=== PATIENT | female | born 1930 | race Caucasian/White ===

== ENCOUNTER 2016-10-12 07:02 | Inpatient (IN) | payer MEDICARE, MEDICAID ==
[2016-10-12] MEDS ORDERED: NS 0.9% 1000 ML* 2,000 ML IV ONE (07:49)
[2016-10-12 08:50] LABS: Urine Bacteria Absent (Absent); Urine Bilirubin Negative (Negative); Urine Glucose Negative (Negative); Urine Nitrite Negative (Negative)
[2016-10-12 08:59] LABS: Hematocrit 36 % (35-47); Hemoglobin 11.9 g/dl (12.0-16.0); Mean Corpuscular HGB Conc 33 g/dl (31-36); Mean Corpuscular Hemoglobin 27 pg (27-31); Mean Corpuscular Volume 83 fL (80-97); Mean Platelet Volume 9 um3 (7.4-10.4); Red Blood Count 4.37 10^6/ul (4.0-5.4); Red Cell Distribution Width 15 % (10.5-15); White Blood Count 16.5 10^3/ul (3.5-10.8)
[2016-10-12 09:24] LABS: Albumin 3.7 g/dL (3.2-5.2); BUN/Creatinine Ratio 26.9 (8-20); Calcium 9.3 mg/dL (8.6-10.3); EGFR African American 73.5 (>60); EGFR Non-African American 57.2 (>60); Globulin 3.9 g/dL (2-4); Magnesium 1.8 mg/dL (1.9-2.7); Potassium 3.6 mmol/L (3.5-5.0); Total Bilirubin 0.7 mg/dL (0.2-1.0); Total Protein 7.6 g/dL (6.4-8.9)
[2016-10-12 09:25] LABS: Troponin I 0.03 ng/mL (<0.04)
--- NOTE | 2016-10-12 09:26 | RAD ---
HISTORY: Fall, left-sided chest pain COMPARISONS: Chest x-ray dated July 21, 2016 VIEWS: 6: Frontal dual-energy and lateral views of the chest, frontal and oblique views of the left hemithorax. FINDINGS: CARDIOMEDIASTINAL SILHOUETTE: The cardiomediastinal silhouette is normal. SHELLY: The shelly are normal. PLEURA: The costophrenic angles are sharp. No pleural abnormalities are noted. There is no appreciable pneumothorax. LUNG PARENCHYMA: There is hyperinflation with flattening of the diaphragm and expansion of the AP diameter of the chest. ABDOMEN: The upper abdomen is clear. There is no subphrenic gas. BONES AND SOFT TISSUES: Degenerative changes are noted of the spine and shoulders. There is no displaced rib fracture. OTHER: None. IMPRESSION: HYPERINFLATION, CONSISTENT WITH COPD. NO ACTIVE CARDIOPULMONARY DISEASE. NO DISPLACED RIB FRACTURE OR PNEUMOTHORAX.
--- NOTE | 2016-10-12 09:34 | RAD ---
INDICATION: Head trauma after fall COMPARISON: CT brain July 21, 2016 TECHNIQUE: Contiguous axial sections of the brain were obtained from the skull base to the vertex without contrast. FINDINGS: The ventricles, cisterns and sulci are within normal limits. There is mild periventricular and subcortical white matter hypoattenuation most consistent with chronic microvascular disease and similar in appearance to the previous CT of the brain. Otherwise the jolly-white matter differentiation is adequately maintained and there is no sulcal effacement. No significant focal abnormality or mass effect is present. There is no evidence for intracranial hemorrhage. Coarse atherosclerotic calcification of the right greater than left vertebral arteries and bilateral petrous carotid arteries are noted. No significant focal osseous abnormality is present. The visualized portion of the paranasal sinuses and mastoid air cells appear clear. IMPRESSION: Age-appropriate chronic findings as described above without CT evidence of acute intracranial abnormality.
--- NOTE | 2016-10-12 09:36 | RAD ---
INDICATION: Trauma, right hip pain. COMPARISON: There are no prior studies available for comparison. TECHNIQUE: Contiguous axial sections were obtained through the pelvis without intravenous or oral contrast. Images were reconstructed in the coronal and sagittal planes. FINDINGS: The bones are osteopenic. No fracture is seen. There is grade 1 anterior spondylolisthesis at the L5-S1 level of approximately 4 mm. There is no evidence for spondylolysis. There is mild bilateral osteoarthritic change in the hips. The visualized portion of the small bowel colon appear nondistended. The urinary bladder is distended. There is diffuse thickening of the wall of the urinary bladder with stranding in the adjacent fat most consistent with cystitis. No significant enlarged pelvic or inguinal lymph nodes are seen. No free intraperitoneal air or fluid is seen. IMPRESSION: 1. NO EVIDENCE FOR FRACTURE. 2. DIFFUSE THICKENING OF THE WALL OF THE URINARY BLADDER WITH INTERSTITIAL STRANDING MOST CONSISTENT WITH CYSTITIS LESS LIKELY A BLADDER MASS. RECOMMEND CLINICAL CORRELATION.
[2016-10-12 09:49] LABS: TSH (Thyroid Stimulating Horm) 1.34 mcIU/mL (0.34-5.60)
[2016-10-12] MEDS ORDERED: cefTRIAXone(*) 1 GM in NS 0.9% 50 ML* 50 ML IVPB ONE (10:34)
[2016-10-12] MEDS ORDERED: Acetaminophen TAB* 325 MG PO PRN (11:23)
[2016-10-12] MEDS ORDERED: Dextrose 50% Syringe 50 ML* 25 GM/50 ML SYRINGE IV PUSH PRN (11:23)
[2016-10-12] MEDS ORDERED: Ondansetron INJ* 2 MG/ML VIAL IV PRN (11:23)
[2016-10-12] MEDS ORDERED: NS 0.9% 1000 ML* 1,000 ML IV SCH (11:30)
[2016-10-12] MEDS ORDERED: Magnesium Sulfate 2 GM IV* 2 GM/50 ML BAG IVPB ONE (11:32)
[2016-10-12] MEDS: Insulin LISPRO* 1 UNITS UNIT SUBCUT SCH ×2 (12:54→17:29)
[2016-10-12] MEDS: cefTRIAXone VIAL(*) 1,000 MG in NS 0.9% 50 ML* 50 ML IVPB SCH (12:56)
[2016-10-12] MEDS: Heparin VIAL(*) 5000 UNITS/ML VIAL (FIVE THOUSAND) SUBCUT SCH ×2 (13:58→21:44)
--- NOTE | 2016-10-12 16:25 | ED ---
Mike Coleman Adam, scribed for Mikey Stearns MD on 10/12/16 at 0745 . Adult Trauma - HPI Summary HPI Summary: 85 y/o female presents to the ED via EMS following a trip and fall where she hit her head on the hard floor. Pt was not oriented to place or time and did not get up to get answer questions so most of the patient history was provided by the daughter. Following fall, pt was found incontinent to urine by the pt's daughter who was concerned and called EMS. Pt is on IV bloodthinner, has DM, and HTN. Pt and daughter do not know of any other PMHx. Pt lives alone. 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 - Daughter Hx From Patient Unobtainable Due To: Other - Non-responsiveness Mechanism of Injury: Fall Ambulatory at the Scene: Yes Loss of Consciousness: no loss of consciousness Onset/Duration: Started Hours Ago Onset of Pain: Immediate Onset Severity: Moderate Current Severity: Mild Pain Intensity: 3 Location: Head Associated Signs & Symptoms: Negative: SOB, Loss of Consciousness - Allergy/Home Medications Allergies/Adverse Reactions: Allergies Allergy/AdvReac Type Severity Reaction Status Date / Time Sulfa Drugs AdvReac Intermediate N/V Verified 04/30/16 09:29 Home Medications: Home Medications Benazepril HCl [Lotensin-] 20 mg PO DAILY 10/12/16 [History Confirmed 10/12/16] Latanoprost 0.005% OPTH (NF) [Xalatan 0.005% OPTH (NF)] 1 drop BOTH EYES QPM [History Confirmed 10/12/16] PMH/Surg Hx/FS Hx/Imm Hx Endocrine/Hematology History: Reports: Hx Diabetes Cardiovascular History: Reports: Hx Hypercholesterolemia, Hx Hypertension Denies: Hx Coronary Artery Disease Respiratory History: Denies: Hx Chronic Obstructive Pulmonary Disease (COPD) - Cancer History Hx Chemotherapy: No Hx Radiation Therapy: No Infectious Disease History: Denies: Traveled Outside the [place] in Last 30 Days - Family History Known Family History: Positive: None Family History: No FHx of Breast CA - Social History Occupation: Retired Lives: Alone Alcohol Use: None Hx Substance Use: No Substance Use Type: Reports: None Hx Tobacco Use: Yes Smoking Status (MU): Former Smoker Review of Systems Negative: Fever Negative: Shortness Of Breath Negative: Abdominal Pain Positive: incontinence - Urine Positive: Other - Negative: Neck Pain Positive: Headache. Negative: Syncope All Other Systems Reviewed And Are Negative: Yes Physical Exam - Summary Physical Exam Summary: The patient is well-nourished in no acute distress and in no acute pain. The skin is warm and dry and skin color reflects adequate perfusion. HEENT: The head is normocephalic and atraumatic. The pupils are equal and reactive. The conjunctivae are clear and without drainage. Nares are patent and without drainage. Mucous membrane dry. The external ears are intact. Neck is supple with full range of motion and non-tender. There are no carotid bruits. There is no neck vein distension. No reproducible tenderness of the neck. Respiratory: Chest is non-tender. Lungs are clear to auscultation and breath sounds are symmetrical and equal. No subcutaneous air. Cardiovascular: Hear is regular rate and rhythm. There is no murmur or rub auscultated. There is no peripheral edema and pulses are symmetrical and equal. Abdomen: The abdomen is soft and non-tender. There are normal bowel sounds heard in all four quadrants and there is no organomegaly palpated. Musculoskeletal: Back pain noted. Extremities are non-tender with full range of motion. There is good capillary refill. There is no peripheral edema or calf tenderness elicited. Left rib tenderness, right hip tenderness with full ROM. No decrepity or deformities. Neurological: Patient is not alert and oriented to place or time. The patient has symmetrical motor strength in all four extremities. Cranial nerves are grossly intact. Deep tendon reflexes are symmetrical and equal in all four extremities. Occipital swelling of head. Psychiatric: The patient has an appropriate affect and does not exhibit any anxiety or depression. Triage Information Reviewed: Yes Vital Signs On Initial Exam: Initial Vitals Temp Pulse Resp BP Pulse Ox 98.6 F 76 19 131/50 96 10/12/16 07:18 10/12/16 07:18 10/12/16 07:18 10/12/16 07:18 10/12/16 07:18 Vital Signs Reviewed: Yes Diagnostics - Vital Signs Vital Signs Temp Pulse Resp BP Pulse Ox 10/12/16 07:18 98.6 F 76 19 131/50 96 - Laboratory Lab Results: Lab Results 10/12/16 10/12/16 10/12/16 Range/Units 08:35 08:50 08:50 WBC 16.5 H (3.5-10.8) 10^3/ul RBC 4.37 (4.0-5.4) 10^6/ul Hgb 11.9 L (12.0-16.0) g/dl Hct 36 (35-47) % MCV 83 (80-97) fL MCH 27 (27-31) pg MCHC 33 (31-36) g/dl RDW 15 (10.5-15) % Plt Count 260 (150-450) 10^3/ul MPV 9 (7.4-10.4) um3 Neut % (Auto) 79.9 (38-83) % Lymph % (Auto) 11.6 L (25-47) % Ferry % (Auto) 7.7 (1-9) % Eos % (Auto) 0.5 (0-6) % Baso % (Auto) 0.3 (0-2) % Absolute Neuts (auto) 13.2 H (1.5-7.7) 10^3/ul Absolute Lymphs (auto) 1.9 (1.0-4.8) 10^3/ul Absolute Monos (auto) 1.3 H (0-0.8) 10^3/ul Absolute Eos (auto) 0.1 (0-0.6) 10^3/ul Absolute Basos (auto) 0 (0-0.2) 10^3/ul Absolute Nucleated RBC 0 10^3/ul Nucleated RBC % 0 Sodium 134 (133-145) mmol/L Potassium 3.6 (3.5-5.0) mmol/L Chloride 97 L (101-111) mmol/L Carbon Dioxide 29 (22-32) mmol/L Anion Gap 8 (2-11) mmol/L BUN 25 H (6-24) mg/dL Creatinine 0.93 (0.51-0.95) mg/dL Est GFR ( Amer) 73.5 (>60) Est GFR (Non-Af Amer) 57.2 (>60) BUN/Creatinine Ratio 26.9 H (8-20) Glucose 148 H (70-100) mg/dL Hemoglobin A1c (Less than 6.0) % Lactic Acid (0.5-2.0) mmol/L Calcium 9.3 (8.6-10.3) mg/dL Magnesium 1.8 L (1.9-2.7) mg/dL Total Bilirubin 0.70 (0.2-1.0) mg/dL AST 24 (13-39) U/L ALT 12 (7-52) U/L Alkaline Phosphatase 67 (34-104) U/L Troponin I 0.03 (<0.04) ng/mL B-Natriuretic Peptide ( - 100) pg/mL Total Protein 7.6 (6.4-8.9) g/dL Albumin 3.7 (3.2-5.2) g/dL Globulin 3.9 (2-4) g/dL Albumin/Globulin Ratio 0.9 L (1-3) TSH 1.34 (0.34-5.60) mcIU/mL Urine Color Yellow Urine Appearance Cloudy Urine pH 6.0 (5-9) Ur Specific [place] 1.012 (1.010-1.030) Urine Protein 2+(100 mg/dl) H (Negative) Urine Ketones Negative (Negative) Urine Blood 1+ H (Negative) Urine Nitrate Negative (Negative) Urine Bilirubin Negative (Negative) Urine Urobilinogen Negative (Negative) Ur Leukocyte Esterase 3+ H (Negative) Urine WBC (Auto) 3+(>20/hpf) H (Absent) Urine RBC (Auto) 1+(3-5/hpf) H (Absent) Ur Squamous Epith Cells Present H (Absent) Urine Bacteria Absent (Absent) Urine Glucose Negative (Negative) 10/12/16 10/12/16 10/12/16 Range/Units 08:50 08:50 08:50 WBC (3.5-10.8) 10^3/ul RBC (4.0-5.4) 10^6/ul Hgb (12.0-16.0) g/dl Hct (35-47) % MCV (80-97) fL MCH (27-31) pg MCHC (31-36) g/dl RDW (10.5-15) % Plt Count (150-450) 10^3/ul MPV (7.4-10.4) um3 Neut % (Auto) (38-83) % Lymph % (Auto) (25-47) % Ferry % (Auto) (1-9) % Eos % (Auto) (0-6) % Baso % (Auto) (0-2) % Absolute Neuts (auto) (1.5-7.7) 10^3/ul Absolute Lymphs (auto) (1.0-4.8) 10^3/ul Absolute Monos (auto) (0-0.8) 10^3/ul Absolute Eos (auto) (0-0.6) 10^3/ul Absolute Basos (auto) (0-0.2) 10^3/ul Absolute Nucleated RBC 10^3/ul Nucleated RBC % Sodium (133-145) mmol/L Potassium (3.5-5.0) mmol/L Chloride (101-111) mmol/L Carbon Dioxide (22-32) mmol/L Anion Gap (2-11) mmol/L BUN (6-24) mg/dL Creatinine (0.51-0.95) mg/dL Est GFR ( Amer) (>60) Est GFR (Non-Af Amer) (>60) BUN/Creatinine Ratio (8-20) Glucose (70-100) mg/dL Hemoglobin A1c 6.7 H (Less than 6.0) % Lactic Acid 1.0 (0.5-2.0) mmol/L Calcium (8.6-10.3) mg/dL Magnesium (1.9-2.7) mg/dL Total Bilirubin (0.2-1.0) mg/dL AST (13-39) U/L ALT (7-52) U/L Alkaline Phosphatase (34-104) U/L Troponin I (<0.04) ng/mL B-Natriuretic Peptide 140 H ( - 100) pg/mL Total Protein (6.4-8.9) g/dL Albumin (3.2-5.2) g/dL Globulin (2-4) g/dL Albumin/Globulin Ratio (1-3) TSH (0.34-5.60) mcIU/mL Urine Color Urine Appearance Urine pH (5-9) Ur Specific [place] (1.010-1.030) Urine Protein (Negative) Urine Ketones (Negative) Urine Blood (Negative) Urine Nitrate (Negative) Urine Bilirubin (Negative) Urine Urobilinogen (Negative) Ur Leukocyte Esterase (Negative) Urine WBC (Auto) (Absent) Urine RBC (Auto) (Absent) Ur Squamous Epith Cells (Absent) Urine Bacteria (Absent) Urine Glucose (Negative) Result Diagrams: 10/12/16 08:50 10/12/16 08:50 Lab Statement: Any lab studies that have been ordered have been reviewed, and results considered in the medical decision making process. - Radiology Ribs XR Radiology Interpretation Completed By: Radiologist - IMPRESSION: HYPERINFLATION , CONSISTENT WITH COPD. NO ACTIVE CARDIOPULMONARY DISEASE. NO DISPLACED RIB FRACTURE OR PNEUMOTHORAX. CXR Radiology Interpretation Completed By: Radiologist - IMPRESSION: HYPERINFLATION , CONSISTENT WITH COPD. NO ACTIVE CARDIOPULMONARY DISEASE. NO DISPLACED RIB FRACTURE OR PNEUMOTHORAX. - CT Pelvic CT CT Interpretation Completed By: Radiologist - IMPRESSION: 1. NO EVIDENCE FOR FRACTURE. 2. DIFFUSE THICKENING OF THE WALL OF THE URINARY BLADDER WITH INTERSTITIAL STRANDING MOST CONSISTENT WITH CYSTITIS LESS LIKELY A BLADDER MASS. RECOMMEND CLINICAL CORRELATION. Brain CT CT Interpretation Completed By: Radiologist - IMPRESSION: Age-appropriate chronic findings as described above without CT evidence of acute intracranial abnormality. Adult Trauma Course/Dx - Diagnoses Differential Diagnosis/HQI/PQRI: Positive: Fracture, Other - closed head trauma , dehydration, uti Provider Diagnoses: UTI (urinary tract infection), Dehydration - Physician Notifications Discussed Care Of Patient With: Dr. Welch at 10:42, Patient will be admitted. Also discussed plan with patient and patient's famiy. Discharge - Discharge Plan Condition: Stable Disposition: ADMITTED TO [facility] documentation as recorded by the Mike wiggins Adam accurately reflects the service I personally performed and the decisions made by , Mikey Stearns MD.
[2016-10-12] MEDS: Latanoprost 0.005%* 2.5 ml BTL BOTH EYES SCH (17:29)
--- NOTE | 2016-10-12 20:20 | HP ---
HISTORY AND PHYSICAL: DATE OF ADMISSION: 10/12/16 PRIMARY CARE PROVIDER: Antolin Quiroz MD ATTENDING PHYSICIAN WHILE IN THE HOSPITAL: Ericka Welch DO * (report dictated by Jose Armando Person NP) CHIEF COMPLAINT: Fall. HISTORY OF PRESENTING ILLNESS: Ms. Narayanan is an 85-year-old female patient with a history of dementia, depression, hypertension, hyperlipidemia, and diabetes. She states yesterday that she was getting out of bed to go to the bathroom and she could not make it and she thinks that she fell on something. She slipped on something that was wet on the bedroom floor. She does have some dementia, but she says that she did not faint, she remembers the fall, she remembers crawling over to grab the pull cord at [employer]. She pulled that cord and 911 was immediately summoned and she was brought into the hospital because of the fall. She denied any chest pain prior to or after the fall. She says she remembers the entire event. She says the only pain that she had was her head because she hit it. She denies any pelvis or hip pain or any arm pain. She does state that over the last 24 to 48 hours, she has been having difficulty emptying her bladder. She has been having some dysuria, but no fever or chills. She denies having any arthralgias or myalgias and no vomiting or diarrhea. She was brought into the ER and it was found that she appeared to have a significant UTI. Fortunately, there was not any fractures noted on imaging and the hospitalist service was asked to evaluate for admission. PAST MEDICAL HISTORY: Significant for: 1. Hypertension. 2. Hyperlipidemia. 3. Diabetes. 4. Dementia. 5. Depression. PAST SURGICAL HISTORY: She has had an appendectomy. HOME MEDICATIONS: Include: 1. Metformin 250 mg p.o. b.i.d. 2. Timolol 1 drop both eyes daily. 3. Zocor 10 mg daily. 4. Zoloft 25 mg daily. 5. Nifedipine 60 mg daily. 6. Latanoprost 1 drop both eyes q.p.m. 7. Hydrochlorothiazide 25 mg daily. 8. Aricept 5 mg daily. 9. Benazepril 20 mg daily. 10. Alendronate 70 mg p.o. weekly. ALLERGIES TO MEDICATIONS: Include SULFA. FAMILY HISTORY: The patient does not recall. It was reviewed that the patient' s daughter seemed to recall that the patient's mother may have had dementia, but otherwise reviewed and noncontributory. SOCIAL HISTORY: She is a former smoker. She does not drink alcohol. She does live at [facility] alone. She does get help from her family. Her surrogate decision maker is her son, Pilo. REVIEW OF SYSTEMS: There is no documented fever. She denied having any significant weight change. There was no double vision. She denies having any ear discharge. There was no rhinorrhea. No sore throat. No thyroid enlargement. She denies having any chest pain. There was no orthopnea. There was no nocturnal dyspnea. There was no abdominal pain. There was no nausea. No vomiting. No dysuria. No frequency. There was no loss of consciousness. No pruritus. No skin ulcerations. Review of 14 systems completed, all others were negative. PHYSICAL EXAMINATION GENERAL: At this time, Ms. Narayanan is an 85-year-old female patient, she is sitting in the ER stretcher, she does not appear to be in any acute distress. She is awake and alert. She is oriented to herself and place. VITAL SIGNS: Blood pressure 135/48 with a pulse of 87, respirations 20, O2 sat 94%, and temperature was 98.6. HEENT: Head is atraumatic. Eyes: Sclerae were anicteric. NECK: Supple. Throat: Oral mucosa appears to be dry. No oropharyngeal erythema. LUNGS: Clear to auscultation bilaterally. No wheezes, rales, or rhonchi. HEART: Sounds S1, S2. Regular rate and rhythm. No murmurs, rubs, or gallops. ABDOMEN: Soft, flat, nontender. No CVA tenderness. EXTREMITIES: Pulses were 2+ throughout. She is able to move all 4 extremities with 5/5 strength. NEUROLOGICAL: The patient is awake, she is alert, she is oriented x3. Tongue midline. [employer] were equal. She had no gross focal deficits. SKIN: Intact. LABORATORY DATA/DIAGNOSTIC STUDIES: Today revealed a WBC of 16.5, RBC of 4.37 , hemoglobin 11.9, hematocrit of 36, and a platelet count of 260. Sodium was 134, potassium was 3.6, chloride of 97, bicarb was 29, BUN was 25, creatinine was 0.93, glucose 148, lactate 1.0, calcium 9.3, and mag 1.8. Total bili 0.7, AST 24, ALT 12, and alk phos 57. Troponin was 0.03. Albumin 3.7. TSH 1.34. She did have a brain CT today, which showed age-appropriate chronic findings as described without CT evidence of acute intracranial abnormality. Chest x-ray showed hyperinflation consistent with COPD, no active cardiopulmonary disease, and no displaced rib fracture or pneumothorax. Pelvis CT showed no evidence of fracture, diffuse thickening of the wall of the urinary bladder with interstitial stranding most consistent with cystitis, less likely a bladder mass, recommend clinical correlation. Ribs x-rays showed again hyperinflation consistent with COPD, no active cardiopulmonary disease or displaced rib fracture or pneumothorax. Old medical records were reviewed. ASSESSMENT AND PLAN: Ms. Narayanan is an 85-year-old female patient coming in today with complaints of fall and hitting her head, on evaluation found to have urinary tract infection. She will be admitted under observation status for: 1. Fall: Again, etiology of this is probably again related to the fact that she may have slipped on her urine. I suspect that she may not been able to hold her urine, that is my theory. I do see also that she does appear to be orthostatic, which certainly did not help the situation. I think at this point I would like to go ahead and give her a liter of fluid and stop her hydrochlorothiazide. We will continue her other blood pressure medications and we will continue to follow this. I also ordered a PT evaluation. I am also awaiting an EKG as well. 2. Urinary tract infection: She appears to have a significant urinary tract infection. I am going to go ahead and put her on Rocephin. We will hydrate her and send off urine cultures. I am going to get blood cultures and I will follow. 3. Hypertension: Again, continue meds with the exception of the hydrochlorothiazide. 4. Hyperlipidemia: Continue statin therapy. 5. Diabetes: She will be on a lispro sliding scale. 6. Dementia: Continue with supportive care. 7. Depression: Continue meds as prescribed. 8. DVT prophylaxis: She will be placed on heparin subcu. 9. Code status: Full code. 10. Fluids, electrolytes, and nutrition: She can have a heart-healthy diet. TIME SPENT: Time spent on the admission was 60 minutes; greater than half the time was spent [id number] with the patient obtaining my history and physical, the other half time is spent going over the plan of care with the patient and implementing plan of care. I discussed the plan of care with my attending, Dr. Welch. She is in agreement. JOSE ARMANDO PERSON NP CC: Dr. Quiroz* [id number]/CPS #: [id number] MTDD
[2016-10-13] MEDS: Heparin VIAL(*) 5000 UNITS/ML VIAL (FIVE THOUSAND) SUBCUT SCH ×3 (05:45→22:11)
[2016-10-13 07:35] LABS: Hematocrit 33 % (35-47); Hemoglobin 10.7 g/dl (12.0-16.0); Mean Corpuscular HGB Conc 33 g/dl (31-36); Mean Corpuscular Hemoglobin 27 pg (27-31); Mean Corpuscular Volume 83 fL (80-97); Mean Platelet Volume 9 um3 (7.4-10.4); Red Blood Count 3.97 10^6/ul (4.0-5.4); Red Cell Distribution Width 14 % (10.5-15); White Blood Count 12.4 10^3/ul (3.5-10.8)
[2016-10-13 07:36] LABS: Add Diff/Slide Review? Slide Review Added; Comments Flag Yes
[2016-10-13 07:47] LABS: BUN/Creatinine Ratio 18.8 (8-20); Calcium 8.2 mg/dL (8.6-10.3); EGFR African American 103.7 (>60); EGFR Non-African American 80.7 (>60); Potassium 3.3 mmol/L (3.5-5.0)
[2016-10-13] MEDS: Insulin LISPRO* 1 UNITS UNIT SUBCUT SCH ×3 (07:56→16:53)
--- NOTE | 2016-10-13 08:38 | PN ---
Subjective Date of Service: 10/13/16 Interval History: . Patient sitting up in chair alert, pleasantly confused but easily reoriented in NAD. Spoke to daughter over phone who reports he is mildly confused at her baseline. Pt would like to go home. Pt denies any pain, reports she feels steady on her feet. No SOB, CP, fevers or chills. Good appetite. Objective Active Medications: Acetaminophen (Tylenol Tab*) 650 mg PO Q4H PRN PRN Reason: FEVER/PAIN Atorvastatin Calcium (Lipitor*) 5 mg PO DAILY [facility] Dextrose (D50w Syringe 50 Ml*) 12.5 gm IV PUSH .FOR FS < 60 - SS PRN PRN Reason: FS < 60 Donepezil HCl (Aricept Tab*) 5 mg PO DAILY [facility] Heparin Sodium (Porcine) (Heparin Vial(*)) 5,000 units SUBCUT Q8HR [facility] Last Admin: 10/13/16 05:45 Dose: 5,000 units Sodium Chloride (Ns 0.9% 1000 Ml*) 1,000 mls @ 100 mls/hr IV PER RATE [facility] Last Admin: 10/12/16 12:56 Dose: 100 mls/hr Ceftriaxone Sodium 1,000 mg/ (Sodium Chloride) 50 mls @ 200 mls/hr IVPB Q24H [facility] Last Admin: 10/12/16 12:56 Dose: 200 mls/hr Insulin Human Lispro (Humalog*) 0 units SUBCUT AC [facility] PRN Reason: Protocol Last Admin: 10/13/16 07:56 Dose: Not Given Latanoprost (Xalatan 0.005%*) 1 drop BOTH EYES QPM [facility] Last Admin: 10/12/16 17:29 Dose: 1 drop Lisinopril (Prinivil Tab*) 20 mg PO DAILY [facility] Nifedipine (Procardia Xl Tab*) 60 mg PO DAILY [facility] Ondansetron HCl (Zofran Inj*) 4 mg IV Q6H PRN PRN Reason: NAUSEA Sertraline HCl (Zoloft*) 25 mg PO DAILY [facility] Timolol Maleate (Timoptic-Xe 0.5% (Ophth)(Nf)) 1 drop BOTH EYES DAILY [facility] Vital Signs 10/12/16 10/12/16 10/12/16 11:00 11:30 12:08 Temperature 98.6 F Pulse Rate 88 83 80 Respiratory 20 21 20 Rate Blood Pressure 123/38 130/56 128/56 (mmHg) O2 Sat by Pulse 94 96 Oximetry 10/12/16 10/12/16 10/12/16 14:50 15:43 15:46 Temperature 97.7 F 99.3 F Pulse Rate 91 79 Respiratory 18 16 16 Rate Blood Pressure 146/95 112/31 (mmHg) O2 Sat by Pulse 97 96 Oximetry 10/12/16 10/12/16 10/12/16 16:39 19:25 20:00 Temperature 98.8 F Pulse Rate 80 Respiratory 17 17 Rate Blood Pressure 143/46 (mmHg) O2 Sat by Pulse 96 96 Oximetry 10/12/16 10/13/16 10/13/16 23:43 00:00 03:45 Temperature 98.3 F 98.7 F Pulse Rate 79 77 Respiratory 16 16 Rate Blood Pressure 128/51 123/92 (mmHg) O2 Sat by Pulse 94 94 93 Oximetry 10/13/16 07:44 Temperature 98.2 F Pulse Rate 71 Respiratory 18 Rate Blood Pressure 134/54 (mmHg) O2 Sat by Pulse 96 Oximetry Oxygen Devices in Use Now: None Appearance: elderly female sitting up in a chair watching tv in [facility]. A+O to self and place but not to time Eyes: No Scleral Icterus, PERRLA Ears/Nose/Mouth/Throat: NL Teeth, Lips, Gums Neck: NL Appearance and Movements; NL JVP Respiratory: Symmetrical Chest Expansion and Respiratory Effort, Clear to Auscultation Cardiovascular: NL Sounds; No Murmurs; No JVD, RRR, No Edema Abdominal: NL Sounds; No Tenderness; No Distention Lymphatic: No Cervical Adenopathy Extremities: No Edema, No Clubbing, Cyanosis Skin: No Rash or Ulcers, No Nodules or Sclerosis Neurological: NL Sensation, NL Gait, NL Muscle Strength and Tone, - - A+O x2 Lines/Tubes/Other Access: Clean, Dry and Intact Peripheral IV Nutrition: Taking PO's Result Diagrams: 10/13/16 07:01 10/13/16 07:01 Additional Lab and Data: Lab Results 10/12/16 10/12/16 10/12/16 Range/Units 08:35 08:50 08:50 WBC 16.5 H (3.5-10.8) 10^3/ul RBC 4.37 (4.0-5.4) 10^6/ul Hgb 11.9 L (12.0-16.0) g/dl Hct 36 (35-47) % MCV 83 (80-97) fL MCH 27 (27-31) pg MCHC 33 (31-36) g/dl RDW 15 (10.5-15) % Plt Count 260 (150-450) 10^3/ul MPV 9 (7.4-10.4) um3 Neut % (Auto) 79.9 (38-83) % Lymph % (Auto) 11.6 L (25-47) % [place] % (Auto) 7.7 (1-9) % Eos % (Auto) 0.5 (0-6) % Baso % (Auto) 0.3 (0-2) % Absolute Neuts (auto) 13.2 H (1.5-7.7) 10^3/ul Absolute Lymphs (auto) 1.9 (1.0-4.8) 10^3/ul Absolute Monos (auto) 1.3 H (0-0.8) 10^3/ul Absolute Eos (auto) 0.1 (0-0.6) 10^3/ul Absolute Basos (auto) 0 (0-0.2) 10^3/ul Absolute Nucleated RBC 0 10^3/ul Nucleated RBC % 0 Sodium 134 (133-145) mmol/L Potassium 3.6 (3.5-5.0) mmol/L Chloride 97 L (101-111) mmol/L Carbon Dioxide 29 (22-32) mmol/L Anion Gap 8 (2-11) mmol/L BUN 25 H (6-24) mg/dL Creatinine 0.93 (0.51-0.95) mg/dL Est GFR ( Amer) 73.5 (>60) Est GFR (Non-Af Amer) 57.2 (>60) BUN/Creatinine Ratio 26.9 H (8-20) Glucose 148 H (70-100) mg/dL Hemoglobin A1c (Less than 6.0) % Lactic Acid (0.5-2.0) mmol/L Calcium 9.3 (8.6-10.3) mg/dL Magnesium 1.8 L (1.9-2.7) mg/dL Total Bilirubin 0.70 (0.2-1.0) mg/dL AST 24 (13-39) U/L ALT 12 (7-52) U/L Alkaline Phosphatase 67 (34-104) U/L Troponin I 0.03 (<0.04) ng/mL B-Natriuretic Peptide ( - 100) pg/mL Total Protein 7.6 (6.4-8.9) g/dL Albumin 3.7 (3.2-5.2) g/dL Globulin 3.9 (2-4) g/dL Albumin/Globulin Ratio 0.9 L (1-3) TSH 1.34 (0.34-5.60) mcIU/mL Urine Color Yellow Urine Appearance Cloudy Urine pH 6.0 (5-9) Ur Specific [place] 1.012 (1.010-1.030) Urine Protein 2+(100 mg/dl) H (Negative) Urine Ketones Negative (Negative) Urine Blood 1+ H (Negative) Urine Nitrate Negative (Negative) Urine Bilirubin Negative (Negative) Urine Urobilinogen Negative (Negative) Ur Leukocyte Esterase 3+ H (Negative) Urine WBC (Auto) 3+(>20/hpf) H (Absent) Urine RBC (Auto) 1+(3-5/hpf) H (Absent) Ur Squamous Epith Cells Present H (Absent) Urine Bacteria Absent (Absent) Urine Glucose Negative (Negative) 10/12/16 10/12/16 10/12/16 Range/Units 08:50 08:50 08:50 WBC (3.5-10.8) 10^3/ul RBC (4.0-5.4) 10^6/ul Hgb (12.0-16.0) g/dl Hct (35-47) % MCV (80-97) fL MCH (27-31) pg MCHC (31-36) g/dl RDW (10.5-15) % Plt Count (150-450) 10^3/ul MPV (7.4-10.4) um3 Neut % (Auto) (38-83) % Lymph % (Auto) (25-47) % [place] % (Auto) (1-9) % Eos % (Auto) (0-6) % Baso % (Auto) (0-2) % Absolute Neuts (auto) (1.5-7.7) 10^3/ul Absolute Lymphs (auto) (1.0-4.8) 10^3/ul Absolute Monos (auto) (0-0.8) 10^3/ul Absolute Eos (auto) (0-0.6) 10^3/ul Absolute Basos (auto) (0-0.2) 10^3/ul Absolute Nucleated RBC 10^3/ul Nucleated RBC % Sodium (133-145) mmol/L Potassium (3.5-5.0) mmol/L Chloride (101-111) mmol/L Carbon Dioxide (22-32) mmol/L Anion Gap (2-11) mmol/L BUN (6-24) mg/dL Creatinine (0.51-0.95) mg/dL Est GFR ( Amer) (>60) Est GFR (Non-Af Amer) (>60) BUN/Creatinine Ratio (8-20) Glucose (70-100) mg/dL Hemoglobin A1c 6.7 H (Less than 6.0) % Lactic Acid 1.0 (0.5-2.0) mmol/L Calcium (8.6-10.3) mg/dL Magnesium (1.9-2.7) mg/dL Total Bilirubin (0.2-1.0) mg/dL AST (13-39) U/L ALT (7-52) U/L Alkaline Phosphatase (34-104) U/L Troponin I (<0.04) ng/mL B-Natriuretic Peptide 140 H ( - 100) pg/mL Total Protein (6.4-8.9) g/dL Albumin (3.2-5.2) g/dL Globulin (2-4) g/dL Albumin/Globulin Ratio (1-3) TSH (0.34-5.60) mcIU/mL Urine Color Urine Appearance Urine pH (5-9) Ur Specific [place] (1.010-1.030) Urine Protein (Negative) Urine Ketones (Negative) Urine Blood (Negative) Urine Nitrate (Negative) Urine Bilirubin (Negative) Urine Urobilinogen (Negative) Ur Leukocyte Esterase (Negative) Urine WBC (Auto) (Absent) Urine RBC (Auto) (Absent) Ur Squamous Epith Cells (Absent) Urine Bacteria (Absent) Urine Glucose (Negative) Assess/Plan/Problems-Billing Assessment: 85 yo female PMH of dementia, HTN, diabetes who lives at [facility] presented to the emergency department of 10/12 with report of fall found to have a UTI - Patient Problems (1) Fall Comment: - mechanical fall, suspect she slipped on urine. Recommendation for under garment which daughter states pt refuses. - No fractures noted on imaging - PT eval showing pt is stable with susana walker, no further recommendations (2) UTI (urinary tract infection) Comment: - continue ceftriaxone -plan to DC home on cipro - blood and urine cx pending - DC isbell (3) Electrolyte abnormality Comment: - replace potassium. magnesium wnls (4) Diabetes Comment: - hold metformin. Continue FSBG AC with lispro SS - HgA1C 6.7 (5) HTN (hypertension) Comment: - controlled. continue lisinopril, procardia, restart HCTZ (6) Dementia Comment: - continue Aricept (7) Depression Comment: - continue zoloft (8) DVT prophylaxis Comment: HSQ (9) Full code status Status and Disposition: OBV. PT eval, Plan for DC to home - daughter is coming this afternoon and will transport patient to [place].
[2016-10-13] MEDS ORDERED: Potassium Chloride LIQUID* 20 MEQ PACKET PO ONE ×2 (08:47→12:00)
[2016-10-13] MEDS ORDERED: Potassium Chloride LIQUID* 20 MEQ PACKET ONE (08:54)
[2016-10-13] MEDS: Donepezil TAB* 5 MG PO SCH (09:01)
[2016-10-13] MEDS: Lisinopril TAB* 10 MG PO SCH (09:01)
[2016-10-13] MEDS: Atorvastatin* 10 MG TAB PO SCH (09:01)
[2016-10-13] MEDS: Timolol XE 0.5% (OPHTH)(NF) 1 DROP BTL BOTH EYES SCH (09:02)
[2016-10-13] MEDS: NIFEdipine ER TAB* 60 MG PO SCH (09:02)
[2016-10-13] MEDS: Sertraline* 25 MG TAB PO SCH (09:02)
[2016-10-13] MEDS: cefTRIAXone VIAL(*) 1,000 MG in NS 0.9% 50 ML* 50 ML IVPB SCH (12:46)
[2016-10-13] MEDS ORDERED: NS 0.9% 250 ML* 250 ML IV ONE (17:35)
[2016-10-13] MEDS: Latanoprost 0.005%* 2.5 ml BTL BOTH EYES SCH (17:39)
--- NOTE | 2016-10-14 02:31 | DS ---
DISCHARGE SUMMARY: DATE OF ADMISSION: 10/12/16 DATE OF DISCHARGE: 10/13/16 HOSPITAL STATUS: Observation. PROVIDER: Chacha Sneed NP ATTENDING PHYSICIAN: Dr. Andrews *(report dictated by Chacha Sneed NP) PRIMARY CARE PROVIDER: Dr. Antolin Quiroz. PRIMARY DIAGNOSES: 1. Mechanical fall. 2. Urinary tract infection. 3. Urinary incontinence. SECONDARY DIAGNOSES: 1. Hypertension. 2. Hyperlipidemia. 3. Fbo-ypohynx-eocgbzffp type 2 diabetes. 4. Dementia. 5. Depression. DISCHARGE MEDICATIONS: 1. Metformin 250 mg p.o. b.i.d. 2. Benazepril HCl 20 mg p.o. daily. 3. Latanoprost 0.005% ophth 1 drop both eyes p.m. 4. Fosamax 70 mg p.o. weekly. 5. Simvastatin 10 mg p.o. daily. 6. Timolol XE 0.5% ophth 1 drop both eyes daily. 7. Aricept 5 mg p.o. daily. 8. Procardia XL 60 mg p.o. daily. 9. Hydrochlorothiazide 25 mg p.o. daily. 10. Zoloft 25 mg p.o. daily. 11. Ciprofloxacin 500 mg p.o. b.i.d. x5 days. HISTORY OF PRESENT ILLNESS AND HOSPITAL COURSE: Please see history and physical by Jose Armando Person NP, for full admission details, but in summary this is an 85-year- old female who resides at [facility], who presented to the emergency department on 10/12/16 after she slipped and fell in the bathroom, reporting she fell on "something wet." The patient denies fainting and remembers a fall, denies any injuries. She had to crawl to pull cord at [facility] and 911 was immediately summoned and she was brought to the [facility] Emergency Department. The patient underwent brain CT which was negative for acute intracranial abnormality as well as a pelvis CT, which showed "no evidence for fracture and then diffuse thickening of the wall of the urinary bladder with interstitial stranding most consistent with cystitis, less likely a bladder mass." The patient also underwent a rib x-ray, which showed no displaced or fractured ribs. She was noted to have an abnormal urinalysis on admission and was started on ceftriaxone for urinary tract infection. The patient reports that she is frequently incontinent of urine. Her two daughters report that she refuses to wear her Depend undergarments and most likely she dribbled urine on the bathroom floor on which she slipped on. I have discussed it with the patient and she agrees to start wearing her Depend. In regards to the patient's urinary tract infection, on admission, the patient did report she had been having some dysuria, but denied any fevers or chills. She was noted to have leukocytosis of 16.5 which is down to 12.4. She has had no noted fevers throughout her hospitalization and has remained hemodynamically stable. She was evaluated by her physical therapist who reports the patient presented at baseline functional status, was independent with out of bed and ambulation with rolling walker with no further inpatient physical therapy needs identified. The patient's blood cultures were negative with no growth day #1. Urine culture is still pending at the time of dictation. Please follow up on the urine culture as it appears by the urinalysis and the patient's symptoms, but most likely, she has a urinary tract infection and the culture is still pending and per CT reading, there was noted to be diffuse thickening of the wall of the urinary bladder with interstitial stranding most consistent with cystitis and less likely a bladder mass. If the urine culture comes back negative, the patient should be evaluated by a urologist. DISCHARGE PLAN: 1. The patient will be discharged home in care of her daughters who will be driving her back to [place]. One of her daughters also resides at [place] who helps her mother with her daily ADLs. 2. Follow up with Dr. Quiroz this week. The patient and/or her daughters will have to make this appointment themselves. 3. Follow up on urine culture. TIME SPENT: Approximately 60 minutes was spent on this discharge. CHACHA SNEED NP CC: Dr. Antolin Quiroz* [id number]/[facility] #: [id number] IRAM
[2016-10-14] MEDS: Heparin VIAL(*) 5000 UNITS/ML VIAL (FIVE THOUSAND) SUBCUT SCH ×3 (07:13→22:04)
[2016-10-14] MEDS: Hydrochlorothiazide TAB* 25 MG PO SCH (09:10)
[2016-10-14] MEDS: Lisinopril TAB* 10 MG PO SCH (09:10)
[2016-10-14] MEDS: Sertraline* 25 MG TAB PO SCH (09:10)
[2016-10-14] MEDS: NIFEdipine ER TAB* 60 MG PO SCH (09:10)
[2016-10-14] MEDS: Ciprofloxacin TAB* 500 MG PO SCH ×2 (09:10→20:37)
[2016-10-14] MEDS: Donepezil TAB* 5 MG PO SCH (09:11)
[2016-10-14] MEDS: Atorvastatin* 10 MG TAB PO SCH (09:11)
[2016-10-14] MEDS: Timolol XE 0.5% (OPHTH)(NF) 1 DROP BTL BOTH EYES SCH (09:12)
[2016-10-14] MEDS: Insulin LISPRO* 1 UNITS UNIT SUBCUT SCH ×3 (09:12→16:32)
--- NOTE | 2016-10-14 11:18 | PN ---
Subjective Date of Service: 10/14/16 Interval History: Patient stayed overnight for urinary retention was unable to void, bladder scan showing >300 mls and was straight cathed last night. This morning was able to urinate 200 mls on her own but was found to have >600mls post void bladder scan x2 Pt offers no complaints today and just wants to go home. No fever or chills. no dysuria. Reports back pain but no CVA pain/tenderness. No N/V/D. Reports good appetite. Daughters have concern about pt managing isbell at home due to her dementia. Spoke with Dr. Beth -plan for trial with flomax, continue bladder scan, if no success will have to DC with isbell and most likely require subacute. Objective Active Medications: Acetaminophen (Tylenol Tab*) 650 mg PO Q4H PRN PRN Reason: FEVER/PAIN Atorvastatin Calcium (Lipitor*) 5 mg PO DAILY [facility] Last Admin: 10/14/16 09:11 Dose: 5 mg Ciprofloxacin (Cipro Tab*) 500 mg PO Q12HR [facility] Last Admin: 10/14/16 09:10 Dose: 500 mg Dextrose (D50w Syringe 50 Ml*) 12.5 gm IV PUSH .FOR FS < 60 - SS PRN PRN Reason: FS < 60 Donepezil HCl (Aricept Tab*) 5 mg PO DAILY [facility] Last Admin: 10/14/16 09:11 Dose: 5 mg Heparin Sodium (Porcine) (Heparin Vial(*)) 5,000 units SUBCUT Q8HR [facility] Last Admin: 10/14/16 07:13 Dose: 5,000 units Hydrochlorothiazide (Hydrodiuril Tab*) 25 mg PO DAILY [facility] Last Admin: 10/14/16 09:10 Dose: 25 mg Ceftriaxone Sodium 1,000 mg/ (Sodium Chloride) 50 mls @ 200 mls/hr IVPB Q24H [facility] Last Admin: 10/13/16 12:46 Dose: 200 mls/hr Insulin Human Lispro (Humalog*) 0 units SUBCUT AC [facility] PRN Reason: Protocol Last Admin: 10/14/16 09:12 Dose: 1 units Latanoprost (Xalatan 0.005%*) 1 drop BOTH EYES QPM [facility] Last Admin: 10/13/16 17:39 Dose: 1 drop Lisinopril (Prinivil Tab*) 20 mg PO DAILY [facility] Last Admin: 10/14/16 09:10 Dose: 20 mg Nifedipine (Procardia Xl Tab*) 60 mg PO DAILY [facility] Last Admin: 10/14/16 09:10 Dose: 60 mg Ondansetron HCl (Zofran Inj*) 4 mg IV Q6H PRN PRN Reason: NAUSEA Sertraline HCl (Zoloft*) 25 mg PO DAILY [facility] Last Admin: 10/14/16 09:10 Dose: 25 mg Timolol Maleate (Timoptic-Xe 0.5% (Ophth)(Nf)) 1 drop BOTH EYES DAILY [facility] Last Admin: 10/14/16 09:12 Dose: Not Given Vital Signs 10/13/16 10/13/16 10/13/16 11:15 15:22 15:35 Temperature 97.0 F 97.2 F Pulse Rate 73 79 Respiratory 19 20 Rate Blood Pressure 123/44 131/41 (mmHg) O2 Sat by Pulse 93 97 97 Oximetry 10/13/16 10/13/16 10/13/16 19:24 20:00 23:16 Temperature 98.0 F 98.4 F Pulse Rate 84 72 Respiratory 20 20 22 Rate Blood Pressure 131/47 112/39 (mmHg) O2 Sat by Pulse 94 94 Oximetry 10/14/16 10/14/16 10/14/16 00:00 07:35 08:00 Temperature 97.9 F Pulse Rate 72 Respiratory 18 18 Rate Blood Pressure 128/49 (mmHg) O2 Sat by Pulse 94 96 95 Oximetry 10/14/16 10:51 Temperature Pulse Rate Respiratory Rate Blood Pressure (mmHg) O2 Sat by Pulse 95 Oximetry Oxygen Devices in Use Now: None Appearance: A+O x3 in NAD sitting up in a chair visiting daughters, mild dementia noted Eyes: No Scleral Icterus, PERRLA Ears/Nose/Mouth/Throat: NL Teeth, Lips, Gums, Mucous Membranes Moist Neck: NL Appearance and Movements; NL JVP Respiratory: Symmetrical Chest Expansion and Respiratory Effort, Clear to Auscultation Cardiovascular: NL Sounds; No Murmurs; No JVD, RRR, No Edema Abdominal: NL Sounds; No Tenderness; No Distention Lymphatic: No Cervical Adenopathy Extremities: No Edema, No Clubbing, Cyanosis Skin: No Rash or Ulcers, No Nodules or Sclerosis Neurological: Alert and Oriented x 3, NL Sensation, NL Muscle Strength and Tone Lines/Tubes/Other Access: Clean, Dry and Intact Peripheral IV Nutrition: Taking PO's Result Diagrams: 10/13/16 07:01 10/13/16 07:01 Additional Lab and Data: Lab Results 10/12/16 10/12/16 10/12/16 Range/Units 08:35 08:50 08:50 WBC 16.5 H (3.5-10.8) 10^3/ul RBC 4.37 (4.0-5.4) 10^6/ul Hgb 11.9 L (12.0-16.0) g/dl Hct 36 (35-47) % MCV 83 (80-97) fL MCH 27 (27-31) pg MCHC 33 (31-36) g/dl RDW 15 (10.5-15) % Plt Count 260 (150-450) 10^3/ul MPV 9 (7.4-10.4) um3 Neut % (Auto) 79.9 (38-83) % Lymph % (Auto) 11.6 L (25-47) % [place] % (Auto) 7.7 (1-9) % Eos % (Auto) 0.5 (0-6) % Baso % (Auto) 0.3 (0-2) % Absolute Neuts (auto) 13.2 H (1.5-7.7) 10^3/ul Absolute Lymphs (auto) 1.9 (1.0-4.8) 10^3/ul Absolute Monos (auto) 1.3 H (0-0.8) 10^3/ul Absolute Eos (auto) 0.1 (0-0.6) 10^3/ul Absolute Basos (auto) 0 (0-0.2) 10^3/ul Absolute Nucleated RBC 0 10^3/ul Nucleated RBC % 0 Sodium 134 (133-145) mmol/L Potassium 3.6 (3.5-5.0) mmol/L Chloride 97 L (101-111) mmol/L Carbon Dioxide 29 (22-32) mmol/L Anion Gap 8 (2-11) mmol/L BUN 25 H (6-24) mg/dL Creatinine 0.93 (0.51-0.95) mg/dL Est GFR ( Amer) 73.5 (>60) Est GFR (Non-Af Amer) 57.2 (>60) BUN/Creatinine Ratio 26.9 H (8-20) Glucose 148 H (70-100) mg/dL Hemoglobin A1c (Less than 6.0) % Lactic Acid (0.5-2.0) mmol/L Calcium 9.3 (8.6-10.3) mg/dL Magnesium 1.8 L (1.9-2.7) mg/dL Total Bilirubin 0.70 (0.2-1.0) mg/dL AST 24 (13-39) U/L ALT 12 (7-52) U/L Alkaline Phosphatase 67 (34-104) U/L Troponin I 0.03 (<0.04) ng/mL B-Natriuretic Peptide ( - 100) pg/mL Total Protein 7.6 (6.4-8.9) g/dL Albumin 3.7 (3.2-5.2) g/dL Globulin 3.9 (2-4) g/dL Albumin/Globulin Ratio 0.9 L (1-3) TSH 1.34 (0.34-5.60) mcIU/mL Urine Color Yellow Urine Appearance Cloudy Urine pH 6.0 (5-9) Ur Specific [place] 1.012 (1.010-1.030) Urine Protein 2+(100 mg/dl) H (Negative) Urine Ketones Negative (Negative) Urine Blood 1+ H (Negative) Urine Nitrate Negative (Negative) Urine Bilirubin Negative (Negative) Urine Urobilinogen Negative (Negative) Ur Leukocyte Esterase 3+ H (Negative) Urine WBC (Auto) 3+(>20/hpf) H (Absent) Urine RBC (Auto) 1+(3-5/hpf) H (Absent) Ur Squamous Epith Cells Present H (Absent) Urine Bacteria Absent (Absent) Urine Glucose Negative (Negative) 10/12/16 10/12/16 10/12/16 Range/Units 08:50 08:50 08:50 WBC (3.5-10.8) 10^3/ul RBC (4.0-5.4) 10^6/ul Hgb (12.0-16.0) g/dl Hct (35-47) % MCV (80-97) fL MCH (27-31) pg MCHC (31-36) g/dl RDW (10.5-15) % Plt Count (150-450) 10^3/ul MPV (7.4-10.4) um3 Neut % (Auto) (38-83) % Lymph % (Auto) (25-47) % [place] % (Auto) (1-9) % Eos % (Auto) (0-6) % Baso % (Auto) (0-2) % Absolute Neuts (auto) (1.5-7.7) 10^3/ul Absolute Lymphs (auto) (1.0-4.8) 10^3/ul Absolute Monos (auto) (0-0.8) 10^3/ul Absolute Eos (auto) (0-0.6) 10^3/ul Absolute Basos (auto) (0-0.2) 10^3/ul Absolute Nucleated RBC 10^3/ul Nucleated RBC % Sodium (133-145) mmol/L Potassium (3.5-5.0) mmol/L Chloride (101-111) mmol/L Carbon Dioxide (22-32) mmol/L Anion Gap (2-11) mmol/L BUN (6-24) mg/dL Creatinine (0.51-0.95) mg/dL Est GFR ( Amer) (>60) Est GFR (Non-Af Amer) (>60) BUN/Creatinine Ratio (8-20) Glucose (70-100) mg/dL Hemoglobin A1c 6.7 H (Less than 6.0) % Lactic Acid 1.0 (0.5-2.0) mmol/L Calcium (8.6-10.3) mg/dL Magnesium (1.9-2.7) mg/dL Total Bilirubin (0.2-1.0) mg/dL AST (13-39) U/L ALT (7-52) U/L Alkaline Phosphatase (34-104) U/L Troponin I (<0.04) ng/mL B-Natriuretic Peptide 140 H ( - 100) pg/mL Total Protein (6.4-8.9) g/dL Albumin (3.2-5.2) g/dL Globulin (2-4) g/dL Albumin/Globulin Ratio (1-3) TSH (0.34-5.60) mcIU/mL Urine Color Urine Appearance Urine pH (5-9) Ur Specific [place] (1.010-1.030) Urine Protein (Negative) Urine Ketones (Negative) Urine Blood (Negative) Urine Nitrate (Negative) Urine Bilirubin (Negative) Urine Urobilinogen (Negative) Ur Leukocyte Esterase (Negative) Urine WBC (Auto) (Absent) Urine RBC (Auto) (Absent) Ur Squamous Epith Cells (Absent) Urine Bacteria (Absent) Urine Glucose (Negative) Microbiology and Other Data: Microbiology 10/12/16 14:19 Aerobic Blood Culture - Preliminary Blood Venous No Growth Day 1 Anaerobic Blood Culture - Preliminary No Growth Day 1 10/12/16 11:55 Aerobic Blood Culture - Preliminary Blood Venous No Growth Day 1 Anaerobic Blood Culture - Preliminary No Growth Day 1 Diagnostic Imaging: VAGINAL EXAM: performed at the bedside. No cystocele or rectocele noted. vaginal exam normal. Assess/Plan/Problems-Billing Assessment: 85 yo female PMH of dementia, HTN, diabetes who lives at [facility] presented to the emergency department of 10/12 with report of fall found to have a UTI - Patient Problems (1) Fall Comment: - mechanical fall, suspect she slipped on urine. Recommendation for under garment which daughter states pt refuses. - No fractures noted on imaging - PT eval showing pt is stable with rolling walker, no further recommendations (2) UTI (urinary tract infection) Comment: - Suspect UTI. Pelvic CT showing bladder wall thicken most likely cystitis less likely bladder mass. Now has urinary retention - Post void bladder scan >600. Renal/Bladder u/s normal. No cystocele or rectocele noted on exam. Plan to trial Flomax overnight and ocntinue to bladder scan and straight cath if necessary - if she continues to retain then will have to placed isbell and will require subacute. Spoke to Dr. Beth who gave the recommendations. Will need urology follow up at discharge. - DC ceftriaxone, cipro x 3 days to finish course - blood cx negative, urine cx pending (3) Diabetes Comment: - hold metformin (restart on DC). Continue FSBG AC with lispro SS - HgA1C 6.7 (4) HTN (hypertension) Comment: - controlled. continue lisinopril, procardia, restart HCTZ (5) Dementia Comment: - continue Aricept (6) Depression Comment: - continue zoloft (7) DVT prophylaxis Comment: HSQ (8) Full code status Status and Disposition: OBV switch to inpatient. Was supposed to be DC'd 10/13 but was experiencing urinary retention. Continue to have urinary retention, plan to trial flomax and if that fails pt will need indwelling isbell and dc to subacute with f/u with urology. Daughters are updated and agree
[2016-10-14] MEDS: cefTRIAXone VIAL(*) 1,000 MG in NS 0.9% 50 ML* 50 ML IVPB SCH (12:54)
--- NOTE | 2016-10-14 13:55 | RAD ---
HISTORY: Urinary retention COMPARISONS: None TECHNIQUE: Multiple transverse and longitudinal ultrasound images were obtained of the kidneys using grayscale and color Doppler imaging. FINDINGS: RIGHT KIDNEY: The right kidney is normal in shape, size, contour, and echogenicity. There is no hydronephrosis or nephrolithiasis. The right kidney measures 10.2 x 4.8 x 4.4 cm. LEFT KIDNEY: The left kidney is normal in shape, size, contour, and echogenicity. There is no hydronephrosis or nephrolithiasis. The left kidney measures 8.7 x 5 x 4.7 cm. BLADDER: No images are submitted of the bladder. AORTA AND IVC: No images are submitted of the vasculature. RETROPERITONEUM: Unremarkable. OTHER: None. IMPRESSION: NO HYDRONEPHROSIS OR NEPHROLITHIASIS
[2016-10-14] MEDS ORDERED: Tamsulosin CAP* 0.4 MG PO ONE (15:29)
[2016-10-14] MEDS: Latanoprost 0.005%* 2.5 ml BTL BOTH EYES SCH (17:51)
[2016-10-15] MEDS: Heparin VIAL(*) 5000 UNITS/ML VIAL (FIVE THOUSAND) SUBCUT SCH ×3 (05:45→21:09)
[2016-10-15 07:29] LABS: Hematocrit 30 % (35-47); Hemoglobin 10.1 g/dl (12.0-16.0); Mean Corpuscular HGB Conc 33 g/dl (31-36); Mean Corpuscular Hemoglobin 28 pg (27-31); Mean Corpuscular Volume 83 fL (80-97); Mean Platelet Volume 9 um3 (7.4-10.4); Red Blood Count 3.63 10^6/ul (4.0-5.4); Red Cell Distribution Width 14 % (10.5-15)
[2016-10-15 07:48] LABS: BUN/Creatinine Ratio 19.8 (8-20); Calcium 8.2 mg/dL (8.6-10.3); EGFR African American 66.8 (>60)
[2016-10-15] MEDS: Insulin LISPRO* 1 UNITS UNIT SUBCUT SCH ×3 (08:51→17:31)
[2016-10-15] MEDS: Ciprofloxacin TAB* 500 MG PO SCH ×2 (08:52→21:09)
[2016-10-15] MEDS: Sertraline* 25 MG TAB PO SCH (08:53)
[2016-10-15] MEDS: Atorvastatin* 10 MG TAB PO SCH (08:53)
[2016-10-15] MEDS: Hydrochlorothiazide TAB* 25 MG PO SCH (08:53)
[2016-10-15] MEDS: Donepezil TAB* 5 MG PO SCH (08:53)
[2016-10-15] MEDS: Lisinopril TAB* 10 MG PO SCH (08:54)
[2016-10-15] MEDS: Tamsulosin CAP* 0.4 MG PO SCH (08:54)
[2016-10-15] MEDS: NIFEdipine ER TAB* 60 MG PO SCH (08:56)
[2016-10-15] MEDS: Timolol XE 0.5% (OPHTH)(NF) 1 DROP BTL BOTH EYES SCH (08:58)
--- NOTE | 2016-10-15 10:27 | PN ---
Subjective Date of Service: 10/15/16 Interval History: Patient seen and examined at bedside. Pt states that she is feeling well this morning. Pt has been unable to urinate on her own for about 24 hours. Pt has been requiring urinary straight cath, Pt denies feeling the urge to urinate. Denies fever, chills, shortness of breath, chest discomfort, N/V/D. Pt states that she last moved her bowels this morning. Family History: Unchanged from Admission Social History: Unchanged from Admission Past Medical History: Unchanged from Admission Objective Active Medications: Acetaminophen (Tylenol Tab*) 650 mg PO Q4H PRN Reason: FEVER/PAIN Atorvastatin Calcium (Lipitor*) 5 mg PO DAILY [facility] Ciprofloxacin (Cipro Tab*) 500 mg PO Q12HR [facility] Stop: 10/17/16 08:59 Dextrose (D50w Syringe 50 Ml*) 12.5 gm IV PUSH .FOR FS < 60 - SS PRN Reason: FS < 60 Donepezil HCl (Aricept Tab*) 5 mg PO DAILY [facility] Heparin Sodium (Porcine) (Heparin Vial(*)) 5,000 units SUBCUT Q8HR [facility] Hydrochlorothiazide (Hydrodiuril Tab*) 25 mg PO DAILY [facility] Insulin Human Lispro (Humalog*) 0 units SUBCUT AC [facility] Reason: Protocol Latanoprost (Xalatan 0.005%*) 1 drop BOTH EYES QPM [facility] Lisinopril (Prinivil Tab*) 20 mg PO DAILY [facility] Nifedipine (Procardia Xl Tab*) 60 mg PO DAILY [facility] Ondansetron HCl (Zofran Inj*) 4 mg IV Q6H PRN Reason: NAUSEA Sertraline HCl (Zoloft*) 25 mg PO DAILY [facility] Tamsulosin HCl (Flomax Cap*) 0.4 mg PO DAILY [facility] Timolol Maleate (Timoptic-Xe 0.5% (Ophth)(Nf)) 1 drop BOTH EYES DAILY [facility] Vital Signs 10/14/16 10/15/16 10/15/16 20:00 00:00 04:29 Temperature Pulse Rate Respiratory 18 Rate Blood Pressure (mmHg) O2 Sat by Pulse 96 94 Oximetry 10/15/16 10/15/16 07:34 10:13 Temperature 98.2 F Pulse Rate 78 Respiratory 22 Rate Blood Pressure 130/50 (mmHg) O2 Sat by Pulse 97 98 Oximetry Oxygen Devices in Use Now: None Appearance: NAD, laying in bed Eyes: No Scleral Icterus, PERRLA Ears/Nose/Mouth/Throat: NL Teeth, Lips, Gums, Mucous Membranes Moist Neck: NL Appearance and Movements; NL JVP, Trachea Midline Respiratory: Symmetrical Chest Expansion and Respiratory Effort, Clear to Auscultation Cardiovascular: NL Sounds; No Murmurs; No JVD, RRR Abdominal: NL Sounds; No Tenderness; No Distention Extremities: No Edema Skin: No Rash or Ulcers Neurological: NL Muscle Strength and Tone, - - Alert and Oriented to Person, confused. Lines/Tubes/Other Access: Clean, Dry and Intact Peripheral IV - site benign Nutrition: Taking PO's Result Diagrams: 10/15/16 06:57 10/15/16 06:57 Additional Lab and Data: Microbiology and Other Data: Microbiology 10/12/16 14:19 Aerobic Blood Culture - Preliminary Blood Venous No Growth Day 1 Anaerobic Blood Culture - Preliminary No Growth Day 1 10/12/16 11:55 Aerobic Blood Culture - Preliminary Blood Venous No Growth Day 1 Anaerobic Blood Culture - Preliminary No Growth Day 1 Assess/Plan/Problems-Billing Assessment: Ms. Narayanan is a 85 yo female PMH of dementia, HTN, diabetes who lives at [facility] presented to the emergency department of 10/12 with report of fall found to have a UTI. - Patient Problems (1) Fall Comment: - mechanical fall, suspect she slipped on urine. Recommendation for under garment which daughter states pt refuses. - No fractures noted on imaging - PT eval showing pt is stable with rolling walker, no further recommendations (2) UTI (urinary tract infection) Comment: - Suspect UTI. Pelvic CT showing bladder wall thicken most likely cystitis less likely bladder mass. Now has urinary retention - Post void bladder scan >600. Renal/Bladder u/s normal. No cystocele or rectocele noted on exam. - Trial of Flomax overnight, Pt continues to need straight cath - Placed isbell cath this AM - Will need urology follow up at discharge. - Cipro x 3 days to finish course - blood cx negative, urine cx pending (3) Dementia Code(s): F03.90 - UNSPECIFIED DEMENTIA WITHOUT BEHAVIORAL DISTURBANCE SNOMED Code(s): 12426571 Comment: - Continue Aricept (4) Depression Code(s): F32.9 - MAJOR DEPRESSIVE DISORDER, SINGLE EPISODE, UNSPECIFIED SNOMED Code(s): 77392410 Comment: - Continue zoloft (5) Diabetes Code(s): E11.9 - TYPE 2 DIABETES MELLITUS WITHOUT COMPLICATIONS SNOMED Code(s) : 16545339 Comment: - Glucose 130-140's - Hold metformin (restart on DC) - Continue FSBG AC with lispro SS - HgA1C 6.7 (6) HTN (hypertension) Current Visit: Yes Status: Chronic Code(s): I10 - ESSENTIAL (PRIMARY) HYPERTENSION SNOMED Code(s): 84734382 Comment: - Controlled, SBP 100-130's - Continue lisinopril, procardia, restart HCTZ (7) DVT prophylaxis Code(s): NYI9385 - SNOMED Code(s): 650670386 Comment: - SQ Heparin (8) Full code status Code(s): Z78.9 - OTHER SPECIFIED HEALTH STATUS SNOMED Code(s): 189102114 Status and Disposition: Inpatient. Was supposed to be DC'd 10/13 but was experiencing urinary retention. Continues to have urinary retention, now with an indwelling isbell and will need dc to subacute with f/u with urology.
[2016-10-15] MEDS: Latanoprost 0.005%* 2.5 ml BTL BOTH EYES SCH (18:34)
[2016-10-16] MEDS: Heparin VIAL(*) 5000 UNITS/ML VIAL (FIVE THOUSAND) SUBCUT SCH ×2 (06:13→14:00)
[2016-10-16 07:40] VITALS: BP 118/38
[2016-10-16] MEDS: Timolol XE 0.5% (OPHTH)(NF) 1 DROP BTL BOTH EYES SCH (08:39)
[2016-10-16] MEDS: NIFEdipine ER TAB* 60 MG PO SCH (08:40)
[2016-10-16] MEDS: Lisinopril TAB* 10 MG PO SCH (08:40)
[2016-10-16] MEDS: Sertraline* 25 MG TAB PO SCH (08:41)
[2016-10-16] MEDS: Ciprofloxacin TAB* 500 MG PO SCH (08:41)
[2016-10-16] MEDS: Hydrochlorothiazide TAB* 25 MG PO SCH (08:41)
[2016-10-16] MEDS: Donepezil TAB* 5 MG PO SCH (08:41)
[2016-10-16] MEDS: Atorvastatin* 10 MG TAB PO SCH (08:41)
[2016-10-16] MEDS: Tamsulosin CAP* 0.4 MG PO SCH (08:41)
[2016-10-16] MEDS: Insulin LISPRO* 1 UNITS UNIT SUBCUT SCH ×2 (08:43→11:23)
[2016-10-16] MEDS ORDERED: Timolol 0.5% OPTH.SOL* BTL BOTH EYES SCH (11:00)
--- NOTE | 2016-10-16 12:05 | PN ---
Subjective Date of Service: 10/16/16 Interval History: Patient seen and examined at bedside. Pt states that she is feeling well. Denies fever, chills, shortness of breath, chest discomfort, N/V/D. Family History: Unchanged from Admission Social History: Unchanged from Admission Past Medical History: Unchanged from Admission Objective Active Medications: Acetaminophen (Tylenol Tab*) 650 mg PO Q4H PRN Reason: FEVER/PAIN Atorvastatin Calcium (Lipitor*) 5 mg PO DAILY [facility] Ciprofloxacin (Cipro Tab*) 500 mg PO Q12HR [facility] Stop: 10/17/16 08:59 Dextrose (D50w Syringe 50 Ml*) 12.5 gm IV PUSH .FOR FS < 60 - SS PRN Reason: FS < 60 Donepezil HCl (Aricept Tab*) 5 mg PO DAILY [facility] Heparin Sodium (Porcine) (Heparin Vial(*)) 5,000 units SUBCUT Q8HR [facility] Hydrochlorothiazide (Hydrodiuril Tab*) 25 mg PO DAILY [facility] Insulin Human Lispro (Humalog*) 0 units SUBCUT AC [facility] Reason: Protocol Latanoprost (Xalatan 0.005%*) 1 drop BOTH EYES QPM [facility] Lisinopril (Prinivil Tab*) 20 mg PO DAILY [facility] Nifedipine (Procardia Xl Tab*) 60 mg PO DAILY [facility] Ondansetron HCl (Zofran Inj*) 4 mg IV Q6H PRN Reason: NAUSEA Sertraline HCl (Zoloft*) 25 mg PO DAILY [facility] Tamsulosin HCl (Flomax Cap*) 0.4 mg PO DAILY [facility] Timolol Maleate (Timoptic 0.5% Opth*) 1 drop BOTH EYES DAILY [facility] Vital Signs 10/15/16 10/15/16 10/15/16 15:15 17:52 20:00 Temperature 97.8 F Pulse Rate 92 Respiratory 17 16 Rate Blood Pressure 125/47 (mmHg) O2 Sat by Pulse 96 98 Oximetry 10/15/16 10/15/16 10/16/16 22:36 23:35 05:27 Temperature 98.0 F Pulse Rate 79 Respiratory 16 Rate Blood Pressure 120/37 (mmHg) O2 Sat by Pulse 98 96 96 Oximetry 10/16/16 10/16/16 07:31 08:00 Temperature 98.2 F Pulse Rate 73 Respiratory 18 18 Rate Blood Pressure 118/38 (mmHg) O2 Sat by Pulse 97 97 Oximetry Oxygen Devices in Use Now: None Appearance: NAD, sitting up in a chair Eyes: No Scleral Icterus, PERRLA Ears/Nose/Mouth/Throat: NL Teeth, Lips, Gums, Mucous Membranes Moist Neck: NL Appearance and Movements; NL JVP, Trachea Midline Respiratory: Symmetrical Chest Expansion and Respiratory Effort, Clear to Auscultation Cardiovascular: NL Sounds; No Murmurs; No JVD, RRR Result Diagrams: 10/15/16 06:57 10/15/16 06:57 Additional Lab and Data: Microbiology and Other Data: Microbiology 10/12/16 14:19 Aerobic Blood Culture - Preliminary Blood Venous No Growth Day 1 Anaerobic Blood Culture - Preliminary No Growth Day 1 10/12/16 11:55 Aerobic Blood Culture - Preliminary Blood Venous No Growth Day 1 Anaerobic Blood Culture - Preliminary No Growth Day 1 Diagnostic Imaging: VAGINAL EXAM: performed at the bedside. No cystocele or rectocele noted. vaginal exam normal. Assess/Plan/Problems-Billing Assessment: Ms. Narayanan is a 85 yo female PMH of dementia, HTN, diabetes who lives at [facility] presented to the emergency department of 10/12 with report of fall found to have a UTI. - Patient Problems (1) Fall Comment: - mechanical fall, suspect she slipped on urine. Recommendation for under garment which daughter states pt refuses. - No fractures noted on imaging - PT eval showing pt is stable with rolling walker, no further recommendations (2) UTI (urinary tract infection) Comment: - Suspect UTI. Pelvic CT showing bladder wall thicken most likely cystitis less likely bladder mass. Now has urinary retention - Post void bladder scan >600. Renal/Bladder u/s normal. No cystocele or rectocele noted on exam. - Trial of Flomax overnight, Pt continued to need straight cath - Isbell cath placed yesterday - Needs outpatient Urology - Will need urology follow up at discharge. - Cipro x 3 days to finish course - blood cx negative, urine cx with mixed eve (3) Dementia Code(s): F03.90 - UNSPECIFIED DEMENTIA WITHOUT BEHAVIORAL DISTURBANCE SNOMED Code(s): 55270678 Comment: - Continue Aricept (4) Depression Code(s): F32.9 - MAJOR DEPRESSIVE DISORDER, SINGLE EPISODE, UNSPECIFIED SNOMED Code(s): 68177702 Comment: - Continue zoloft (5) Diabetes Code(s): E11.9 - TYPE 2 DIABETES MELLITUS WITHOUT COMPLICATIONS SNOMED Code(s) : 64764112 Comment: - Glucose 120-170's - Resume metformin - HgA1C 6.7 (6) HTN (hypertension) Current Visit: Yes Status: Chronic Code(s): I10 - ESSENTIAL (PRIMARY) HYPERTENSION SNOMED Code(s): 02554132 Comment: - Controlled, SBP 110-120's - Continue lisinopril, procardia, restart HCTZ (7) DVT prophylaxis Code(s): NJE0240 - SNOMED Code(s): 178179269 (8) Full code status Code(s): Z78.9 - OTHER SPECIFIED HEALTH STATUS SNOMED Code(s): 671691873 Status and Disposition: Inpatient. Continues to have urinary retention, now with an indwelling isbell and will need dc to subacute with f/u with urology. Stable for discharge to [facility] today.
--- NOTE | 2016-10-16 13:02 | DS ---
DATE OF ADMISSION: 10/12/16 DATE OF DISCHARGE: 10/16/16 AGE: 85. ATTENDING PHYSICIAN: Dr. Azam Andrews *(dictated by Taina Francis NP). PRIMARY CARE PROVIDER: Dr. Antolin Quiroz. PRIMARY DIAGNOSES: 1. Mechanical fall. 2. Suspected urinary tract infection. 3. Urinary incontinence. 4. Urinary retention. SECONDARY DIAGNOSES: 1. Hypertension. 2. Hyperlipidemia. 3. Noninsulin dependent type 2 diabetes mellitus. 4. Dementia. 5. Depression. STUDIES WHILE IN THE HOSPITAL: 1. Brain CT, 10/12/2016: Radiologist's impression: Age-appropriate chronic findings as described above without CT evidence of acute intracranial abnormality. 2. Chest x-ray, 10/12/2016: Radiologist's impression: Hyperinflation, consistent with COPD. No active cardiopulmonary disease. No displaced rib fracture or pneumothorax. 3. Pelvis CT, 10/12/2016: Radiologist's impression: No evidence for fracture. Diffuse thickening of the wall of the urinary bladder with interstitial stranding most consistent with cystitis, less likely a bladder mass. Recommend clinical correlation. 4. Left rib x-ray, 10/12/2016: Radiologist's impression: Hyperinflation, consistent with COPD. No active cardiopulmonary disease. No displaced rib fracture or pneumothorax. 5. Renal ultrasound, 10/14/2016: Radiologist's impression: No hydronephrosis or nephrolithiasis. DISCHARGE MEDICATIONS: New medications: 1. Ciprofloxacin 500 mg oral twice daily for 5 more doses to complete a 5 day course. 2. Tamsulosin 0.4 mg oral daily. Continued home medications: 1. Metformin 250 mg oral twice daily. 2. Benazepril HCl 20 mg oral daily. 3. Latanoprost 0.005 percent ophthalmic one drop to both eyes every evening. 4. Fosamax 70 mg oral weekly. 5. Simvastatin 10 mg oral daily. 6. Timolol XE 0.5 percent one drop to both eyes daily. 7. Aricept 5 mg oral daily. 8. Procardia XL 60 mg oral daily. 9. Hydrochlorothiazide 25 mg oral daily. 10. Zoloft 25 mg oral daily. HISTORY OF PRESENT ILLNESS/HOSPITAL COURSE: Ms. Narayanan is an 85-year-old female with a past medical history significant for hypertension, hyperlipidemia, dementia, and insulin dependent diabetes who resides at [facility], who presented to the emergency room on 10/12/2016 after slipping and falling in her bathroom. The patient reported slipping on "something wet." The patient denied any fainting and remembered the fall. She denied any injury. The patient was able to crawl to the pull cord at [facility], and 911 was summoned and the patient was brought to the emergency room for further evaluation. While in the emergency room, the patient underwent a CT of the brain which was negative for any acute intracranial abnormalities, as well as a pelvis CT which showed no evidence of a fracture with diffuse thickening of the wall of the urinary bladder with interstitial stranding most consistent with cystitis, less likely a bladder mass. The patient also had a rib x-ray showing no displaced fractures. The patient was noted to have an abnormal urinalysis on admission and was started on Ceftriaxone for urinary tract infection. It is to note that the patient was frequently incontinent of urine and the patient declined to wear Depends undergarments. It was felt that she most likely had dribbled urine on the bathroom floor and that is what she slipped on. The patient was encouraged to wear Depends. While in the hospital the patient was suspected to have an urinary tract infection on admission, the patient was reporting dysuria, denied any fever or chills. She did have a leukocytosis of 16.5 which resolved during her stay. The patient was afebrile during her hospitalization and remained hemodynamically stable. The patient was seen in evaluation by Physical Therapy who felt that the patient was at her baseline functional status and was independent, out of bed and ambulating with a rolling walker, and there were no further inpatient physical therapy needs identified. The patient had blood cultures showing no growth on day 3. The patient had a urinary culture that had mixed eve that was felt to be a possible contamination. Due to the patient presenting with a suspected UTI and symptomatic with dysuria, the patient was continued on Cipro. During the patient's time, she developed urinary retention and was unable to urinate. She was requiring urinary straight catheterization. The patient was trialed on Flomax and was still unable to urinate on her own. A urinary catheter was placed. The patient should be seen in evaluation by a urologist as an outpatient. It was felt that Ms. Narayanan would be unable to care for a urinary catheter at home and it was recommended that she go the a [place] [facility] [place]. Ms. Narayanan is stable for discharge to [facility] today. Vital signs are as follows: Temperature 98.2, heart rate 73, respiratory rate 18, O2 sat 97 percent on room air, blood pressure 118/38. DISCHARGE PLAN: Ms. Narayanan will be discharged to [facility]. As far as the patient's suspected UTI, she should be continued on Cipro for five more doses to complete a five day course. The patient should be seen in follow- up by Dr. Quiroz or a provider at [facility] per their protocol. The patient should also be seen in follow-up with Urology. An appointment will need to be made. For now, the patient should be continued with a urinary catheter until she is evaluated by Urology. The patient has also been continued on Flomax as this may help with her urinary retention. The patient should return to the emergency room for shortness of breath or chest discomfort. This is a summarized report of a complex medical history and hospital stay. For further details, please see the entire medical record. Time for this discharge was 50 minutes and approximately 25 of that was spent with the patient and family discussing discharge plans and instructions. CONDITION ON DISCHARGE: Stable. Reviewed by YONI PRATER 10/24/16 0915 CC: Dr. Antolin Quiroz; [facility] * [id number]/[facility] #: [id number] MTDD
== END 2016-10-16 14:10 | DRG 690 ==
LOC: ED 07:02 → MED 10:43 → OBSVTOIN 10-14 17:00 → INTOOBSV 10-14 18:08
PROVIDERS: ADMIT Hospitalist; ATTEND Hospitalist
PROC: 0T9B70Z Drainage of Bladder with Drainage Device, Via Natural or Artificial Opening (ICD-10-PCS; principal; 2016-10-14)
DX: N39.0 Urinary tract infection, site not specified (principal); E87.8 Other disorders of electrolyte and fluid balance, not elsewhere classified; F03.90 Unspecified dementia, unspecified severity, without behavioral disturbance, psychotic disturbance, mood disturbance, and anxiety; E11.9 Type 2 diabetes mellitus without complications; I10 Essential (primary) hypertension; Z88.2 Allergy status to sulfonamides; Z87.891 Personal history of nicotine dependence; F32.9 Major depressive disorder, single episode, unspecified; E78.5 Hyperlipidemia, unspecified; Z79.84 Long term (current) use of oral hypoglycemic drugs
CPT/HCPCS: 36415; 70450; 71020; 72192; 76775; 80048; 80053; 81003; 81015; 83036; 83605; 83735; 83880; 84443; 84484; 85025; 85610; 87040; 87086; 93005; 94760; A9270-GY; G8978-GP-CI; G8979-GP-CI; G8980-GP-CI; J0696; J1644; J3475

== ENCOUNTER 2016-10-22 15:59 | Inpatient (IN) | payer MEDICARE, MEDICAID ==
[2016-10-22] MEDS ORDERED: NS 0.9% 1000 ML* 2,000 ML IV ONE ×2 (16:23→17:22)
[2016-10-22 16:47] LABS: Hematocrit 32 % (35-47); Hemoglobin 10.6 g/dl (12.0-16.0); Mean Corpuscular HGB Conc 33 g/dl (31-36); Mean Corpuscular Hemoglobin 28 pg (27-31); Mean Corpuscular Volume 84 fL (80-97); Mean Platelet Volume 9 um3 (7.4-10.4); Red Blood Count 3.84 10^6/ul (4.0-5.4); Red Cell Distribution Width 15 % (10.5-15); White Blood Count 12.1 10^3/ul (3.5-10.8)
[2016-10-22 16:53] LABS: Add Diff/Slide Review? Slide Review Added; Comments Flag Yes
[2016-10-22 17:06] LABS: Troponin I 0.03 ng/mL (<0.04)
[2016-10-22] MEDS ORDERED: metroNIDAZOLE IV 500 MG/100ML* 500 MG/100 ML BAG IVPB ONE (17:06)
[2016-10-22] MEDS ORDERED: Vancomycin(*) 1,000 MG in NS 0.9% 250 ML* 250 ML IVPB ONE (17:06)
[2016-10-22] MEDS ORDERED: Cefepime(*) 2 GM in NS 0.9% 50 ML* 50 ML IVPB ONE (17:06)
[2016-10-22 17:10] LABS: Albumin 3.1 g/dL (3.2-5.2); BUN/Creatinine Ratio 11.9 (8-20); C Reactive Protein 9.91 mg/L (< 5.00); Calcium 7.1 mg/dL (8.6-10.3); EGFR African American 4.6 (>60); EGFR Non-African American 3.6 (>60); Globulin 3.3 g/dL (2-4); Magnesium 2.3 mg/dL (1.9-2.7); Total Bilirubin 0.3 mg/dL (0.2-1.0); Total Protein 6.4 g/dL (6.4-8.9)
[2016-10-22 17:13] LABS: TSH (Thyroid Stimulating Horm) 0.67 mcIU/mL (0.34-5.60)
[2016-10-22] MEDS ORDERED: NS 0.9% 250 ML* 250 ML ONE (17:18)
[2016-10-22] MEDS ORDERED: NS 0.9% 50 ML* 50 ML ONE (17:18)
[2016-10-22 17:39] LABS: Potassium 7.6 mmol/L (3.5-5.0)
[2016-10-22] MEDS ORDERED: Insulin REGULAR(*) 1 UNITS UNIT IV PUSH ONE (17:47)
[2016-10-22] MEDS ORDERED: Dextrose 50% VIAL 50 ml IV ONE (17:48)
[2016-10-22] MEDS ORDERED: Sodium Bicarbonate 8.4% IV* 50 ML VIAL IV ONE (17:56)
[2016-10-22] MEDS ORDERED: Dextrose 50% Syringe 50 ML* 25 GM/50 ML SYRINGE ONE (17:57)
--- NOTE | 2016-10-22 17:57 | RAD ---
Indication: Hypotensive. Diarrhea illness for a few days. Comparison: October 12, 2016 Technique: Upright AP 1731 hours Report: Leftward rotation noted. Elevated lung volumes and mild prominence of the interstitial markings. Mild alveolar consolidation at the LEFT mid to lower lung zone is new compared with the prior exam. Grossly clear pleural spaces. Cardiomegaly. Unremarkable central pulmonary vasculature. IMPRESSION: While leftward rotation limits assessment there is suggestion of alveolar consolidation at the LEFT mid to lower lung zone concerning for pneumonia. Underlying stigmata of chronic obstructive pulmonary disease. Correlate with clinical assessment.
[2016-10-22] MEDS ORDERED: Sodium Bicarbonate 8.4%* 50 ML SYRINGE ONE ×2 (17:58→18:14)
[2016-10-22] MEDS ORDERED: Sodium Bicarbonate 8.4%* 50 ML SYRINGE IV ONE ×3 (18:02→20:51)
[2016-10-22] MEDS ORDERED: Levofloxacin 750 MG IVPREMIX(* 750 MG/150 ML BAG IVPB ONE (18:13)
[2016-10-22] MEDS ORDERED: Dextrose 50% Syringe 50 ML* 25 GM/50 ML SYRINGE IV PUSH PRN (18:20)
[2016-10-22] MEDS ORDERED: Norepinephrine VIAL* 1 MG/ML 4 ML VIAL ONE (18:23)
--- NOTE | 2016-10-22 18:37 | ADMNOTE ---
Subjective Date of Service: 10/22/16 Interval History: ADMISSION HISTORY AND PHYSICAL EXAM: Allergies Allergy/AdvReac Type Severity Reaction Status Date / Time Sulfa Drugs AdvReac Intermediate N/V Verified 04/30/16 09:29 Home Medications Medication Instructions Recorded Confirmed Type Alendronate (NF) [Fosamax (NF)] 70 mg PO WEEKLY 04/30/16 10/22/16 History Donepezil TAB* [Aricept TAB*] 5 mg PO DAILY 04/30/16 10/22/16 History Hydrochlorothiazide TAB* 25 mg PO QAM 04/30/16 10/22/16 History [Hydrodiuril TAB*] NIFEdipine ER TAB* [Procardia Xl 60 mg PO DAILY 04/30/16 10/22/16 History TAB*] Sertraline* [Zoloft*] 25 mg PO DAILY 04/30/16 10/22/16 History Simvastatin TAB(NF) [Zocor 10 MG 10 mg PO BEDTIME 04/30/16 10/22/16 History (NF)] Timolol XE 0.5% (OPHTH)(NF) 1 drop BOTH EYES BEDTIME 04/30/16 10/22/16 History [Timoptic-XE 0.5% (OPHTH)(NF)] metFORMIN* [Glucophage*] 250 mg PO BID 04/30/16 10/22/16 History Benazepril HCl [Lotensin-] 20 mg PO QAM 10/12/16 10/22/16 History Latanoprost 0.005% OPTH (NF) 1 drop BOTH EYES QPM 10/12/16 10/22/16 History [Xalatan 0.005% OPTH*] Ciprofloxacin TAB* [Cipro Tab*] 500 mg PO Q12HR #1 tab 10/16/16 10/22/16 Rx Tamsulosin CAP* [Flomax CAP*] 0.4 mg PO DAILY cap 10/16/16 10/22/16 Rx Ondansetron TAB* [Zofran Tab*] 4 mg PO Q8HR PRN 10/22/16 10/22/16 History HPI: Pt discharged to [facility] 10/16 with dx urinary retention, possible UTI, on cipro and tamsulosin. She began having copious diarrhea 2-3 days ago and became very weak. The SNF staff called 911. She has mild abdominal pain, no emesis. Family History: Findings - unknown. ? dementia in mother. Social History: Findings - [facility] 4 children. Son Pilo is her SDM. Quit smoking many years ago. No alcohol abuse. Past Medical History: Findings - appy. DM, HTN, glaucoma, dementia. Review of Systems - Measurements Intake and Output: Intake and Output Last 24 Hours 10/20/16 10/21/16 10/22/16 10/23/16 06:59 06:59 06:59 06:59 Weight 120 lb - Review of Systems General Comments: Unable to be obtained due to poor patient memory. Objective Active Medications: Dextrose (D50w Syringe 50 Ml*) 12.5 gm IV PUSH .FOR FS < 60 - SS PRN PRN Reason: FS < 60 Enoxaparin Sodium (Lovenox(*)) 30 mg SUBCUT Q24H [facility] Vancomycin HCl 1,000 mg/ (Sodium Chloride) 250 mls @ 166.667 mls/hr IVPB ED ONCE ONE Stop: 10/22/16 18:35 Last Admin: 10/22/16 17:43 Dose: 166.667 mls/hr Sodium Chloride (Ns 0.9% 1000 Ml*) 2,000 mls @ 1,000 mls/hr IV ED ONCE ONE Stop: 10/22/16 19:21 Last Admin: 10/22/16 17:55 Dose: 1,000 mls/hr Norepinephrine Bitartrate (Levophed 16 Mcg/Ml Premix Bag*) 4,000 mcg in 250 mls @ 0 mls/hr IV .INITIAL RATE WES PRN Reason: As Directed Levofloxacin/Dextrose (Levaquin 750 Mg Ivpremix(*)) 750 mg in 150 mls @ 100 mls /hr IVPB ED ONCE ONE Stop: 10/22/16 19:42 Metronidazole/Sodium Chloride (Flagyl 500 Mg Ivpb*) 500 mg in 100 mls @ 100 mls /hr IVPB Q8H [facility] Levofloxacin/Dextrose (Levaquin 500 Mg Ivpremix(*)) 500 mg in 100 mls @ 100 mls /hr IVPB Q48H [facility] Cefepime HCl 1 gm/ Sodium (Chloride) 50 mls @ 100 mls/hr IVPB Q24H [facility] Insulin Human Lispro (Humalog*) 0 units SUBCUT FS Q6 ICU [facility] PRN Reason: Protocol Timolol Maleate (Timoptic-Xe 0.5% (Ophth)(Nf)) 1 drop BOTH EYES DAILY [facility] Vital Signs 10/22/16 10/22/16 10/22/16 16:42 16:45 17:16 Temperature 96 F Pulse Rate 73 56 88 Respiratory 20 20 20 Rate Blood Pressure 73/33 61/32 64/25 (mmHg) O2 Sat by Pulse 100 100 99 Oximetry 10/22/16 17:53 Temperature 96 F Pulse Rate 101 Respiratory 20 Rate Blood Pressure 61/29 (mmHg) O2 Sat by Pulse 100 Oximetry Oxygen Devices in Use Now: Nasal Cannula Appearance: Supine on ED stretcher. Alert, neutral affect. Looks comfortable. Eyes: No Scleral Icterus Ears/Nose/Mouth/Throat: Clear Oropharnyx, Mucous Membranes Moist Neck: NL Appearance and Movements; NL JVP, No Thyroid Enlargement, Masses Respiratory: Symmetrical Chest Expansion and Respiratory Effort, Clear to Auscultation, Clear to Percussion Extremities: No Edema, No Clubbing, Cyanosis, - Skin: No Nodules or Sclerosis, - - patchy ecchymosis L lateral lower leg Neurological: NL Sensation - Disoriented. Unable to state her age. Result Diagrams: 10/22/16 16:14 10/22/16 16:14 Assess/Plan/Problems-Billing Assessment: - Patient Problems (1) KEVIN (acute kidney injury) Current Visit: Yes Status: Acute Code(s): N17.9 - ACUTE KIDNEY FAILURE, UNSPECIFIED SNOMED Code(s): 31145306 Comment: Likely due to severe dehydration plus sepsis. (2) Severe sepsis Current Visit: Yes Status: Acute Code(s): A41.9 - SEPSIS, UNSPECIFIED ORGANISM; R65.20 - SEVERE SEPSIS WITHOUT SEPTIC SHOCK SNOMED Code(s): 94176145 Comment: KEVIN, hypotension, acidosis. IV fluids, glucose and insulin, 3 amps sodium bicarb, cefepime, pip/ruiz, metronidazole. (3) Diarrhea Current Visit: Yes Status: Acute Code(s): R19.7 - DIARRHEA, UNSPECIFIED SNOMED Code(s): 37906207 Comment: IV metronidazole. Monitor abdomen clinically. (4) Diabetes Current Visit: No Status: Chronic Code(s): E11.9 - TYPE 2 DIABETES MELLITUS WITHOUT COMPLICATIONS SNOMED Code(s): 33185639 Comment: Lispro by SS q 6 hr (5) Glaucoma Current Visit: Yes Status: Acute Code(s): H40.9 - UNSPECIFIED GLAUCOMA SNOMED Code(s): 81108273 Comment: Timolol XE ordered.
[2016-10-22] MEDS ORDERED: NS 0.9% 1000 ML* 1,000 ML IV SCH (19:00)
[2016-10-22] MEDS ORDERED: Norepinephrine 16MCG/ML IVPRE* 4,000 MCG/250 ML BAG IV SCH (19:00)
[2016-10-22] MEDS ORDERED: Enoxaparin(*) 40 MG/0.4 ML SYR SUBCUT SCH (19:00)
[2016-10-22] MEDS ORDERED: Levofloxacin 500 MG IVPREMIX(* 500 MG/100 ML BAG IVPB SCH (19:00)
[2016-10-22] MEDS ORDERED: Cefepime(*) 1 GM in NS 0.9% 50 ML* 50 ML IVPB SCH ×2 (19:00→19:30)
[2016-10-22] MEDS ORDERED: Midazolam* 1 MG/ML 2 ML VIAL (2 MG) ONE (19:24)
[2016-10-22] MEDS ORDERED: Piperac/Tazob 3.375 gm in NS* 3.375 GM/100 ML BAG IVPB ONE (19:30)
[2016-10-22] MEDS ORDERED: Midazolam* 1 MG/ML 2 ML VIAL (2 MG) IV ONE (20:00)
--- NOTE | 2016-10-22 20:35 | PN ---
Progress Note - Progress Note Note: Critical Care Medicine 85 yo female recently (last week) in hospital with urinary retention and UTI sent out to [facility] with a isbell catheter and a prescription for Ciprofloxin who developed profuse diarrhea over the past week becoming quite weak prompting return to ER for evaluation. Found to be quite hypotensive in ER, with a metabolic acidosis partially related to lactate elevation along with acute renal failure. Patient given a few liters of IV fluids, bicarb, Levophed gtt initiated, and broad Abx initiated too out of concern for ongoing sepsis. Concern also raised re presence of C Dificile Colitis. Patient also underwent placement of a central line. Patient herself complains of a dry mouth and denies presence of any abdominal pain. Also denies chest pain and dyspnea. Allergy Sulfa PMH includes Glaucoma and Diabetes Soc Hx...has several family members who are attentive with 2 of them designated as HCP SBP 86 HR 71 RR 19 SpO2 97 (RA) Skin feels quite parchment-like dry, no cyanosis, no diaphoresis Sclerae anicteric, pupils equal Oral mucosa pink Neck supple, Lt IJ line in place Lungs with few basilar rhonchi, no wheezes Cor RRR no rub, no murmur Abd active BS, nontender, mild distension isbell Ext no edema, no cord, no calf tenderness WBC 12.1 Hgb 10.6 Plt 342 INR 1.0 PTT 29 Na 121 K 7.6 HCO3 8 BUN/Creat 121/10.1 Lact 6.4 Gluc 101 Mg 2.3 CPK 198 Trop 0.03 Alb 3.1 TSH 0.67 CXR central line in place, no infiltrate, no PVC IMP: Given history of profuse diarrhea over the past several days suspect severe hypovolemia...this is supported by dryness of skin and oral mucosa Acute Renal Failure due to hypovolemia and hypotension Severe metabolic acidosis as a consequence of bicarb losses via GI tract , lactate accumulation from underperfusion due to hypovolemia,and KEVIN Hyperkalemia due to metabolic acidosis Diarrheal syndrome resulting in face of recent course of Abx and hospitalization, as well as residing in a medical facility this past weak raises concern for C Dificile Colitis Hx DM Hx recent UTI PLAN/REC: Check CVPs...shoot for something like CVP10 to staert Bicarb gtt Insulin gtt if needed to manage hyperglycemia related to bicarb gtt Titrate Levophed as needed Trend lactate, HCO3, K Would start enteral Vanco Watch glucoses DVT prophyl Keep HOB raised Of note...I talked to family regarding her situation...they do not want her intubated or put on a respirator. They are not sure about the topic of hemodialysis. For now they do want CPR and cardioversion/countershock however they they understand that the dissociation of cardiac resuscitation and intubation with ventilatory support are incongruous.
--- NOTE | 2016-10-22 20:44 | RAD ---
Indication: Central line placement. Septic shock. History of tobacco use. Comparison: October 22, 2016 1730 hours Technique: Upright AP 8 hours Report: Tip of LEFT IJ central venous catheter at level of superior vena cava RIGHT atrial junction directed central. Negative for pneumothorax. Mild prominence of interstitial markings without change. Grossly clear pleural spaces. Mild cardiomegaly. Unremarkable central pulmonary vasculature. IMPRESSION: Negative for pneumothorax post LEFT internal jugular central venous catheter placement.
[2016-10-22] MEDS ORDERED: Vancomycin CAP* 250 MG CAP PO SCH (21:00)
[2016-10-22] MEDS: metroNIDAZOLE IV 500 MG/100ML* 500 MG/100 ML BAG IVPB SCH (21:20)
[2016-10-22] MEDS: Sodium Bicarbonate 8.4% IV* 150 MEQ in D5W 1000 ML BAG* 1,000 ML IVPB SCH (22:02)
--- NOTE | 2016-10-22 22:14 | ED ---
Jose Coleman Soohyun, scribed for Mayito Ryan MD on 10/22/16 at 1925 . Progress - Progress Note Progress Note: Central line placement performed in ICU. Pt was seen in ER, found to be septic, hypotensive, and critically ill. Dr. Velásquez requested internal jugular central line since he is more skilled in putting in femoral line. Femoral line is contraindicated due to pt having diarrhea and increased risk of infection. Pt initially confused, but provides consent after talking to her health proxy, her son. Four of pt's children are here, including healthcare proxy. R/b/a of central line placement at left jugular vein is discussed with family members present at bedside, and they are agreeable. Family members expresses understanding of risks involving PTX, bleeding, and infection. Due to her confusion, Pt tends to move around and resist the procedure even when we US scan her. Pt will be sedated with 1 mg of Versed. Systolic pressure of 105 and HR of 79 are noted prior to procedure. Breathing is comfortable. INR is reviewed with lab, and it is 1.0. Time out with son's signature as healthcare proxy 1930 on 10/22/2016. Course/Dx - Diagnoses Provider Diagnoses: Hypotension Procedures - Procedure Summary Procedure Summary: Central Line Placement at Left IJ. Timeout completed at 1931 PM. Sedation performed with 1 mg Versed. Pt maintains airway, spontaneous respiration, and stable blood pressure. Sterile technique used. 1 attempt, US-guided. No complication. Will confirm placement with portable X-ray. - Central Line Central Line Lumen: triple Central Line Procedure: sterile drapes applied, sterile dressing applied Central Line Position: internal jugular (L) Complications: none Central Line Post Position: sutured The documentation as recorded by the tessieibJose sow Soohyun accurately reflects the service I personally performed and the decisions made by Shelby mcpherson Farzad, MD.
[2016-10-22] MEDS: Heparin VIAL(*) 5000 UNITS/ML VIAL (FIVE THOUSAND) SUBCUT SCH (22:26)
[2016-10-22 22:43] LABS: BUN/Creatinine Ratio 11.8 (8-20); EGFR African American 5.2 (>60); Potassium 5.9 mmol/L (3.5-5.0)
[2016-10-22 22:44] LABS: Calcium 5.9 mg/dL (8.6-10.3)
[2016-10-22] MEDS: D5W IVPB SCH (23:25)
[2016-10-22] MEDS: NOREPINEPHRINE IVPB SCH (23:25)
[2016-10-23] MEDS: Insulin LISPRO* 1 UNITS UNIT SUBCUT SCH ×3 (00:24→12:03)
[2016-10-23] MEDS: metroNIDAZOLE IV 500 MG/100ML* 500 MG/100 ML BAG IVPB SCH (02:35)
[2016-10-23] MEDS: Piperac/Tazob 3.375 gm in NS* 3.375 GM/100 ML BAG IVPB SCH ×2 (02:35→13:18)
[2016-10-23] MEDS: NOREPINEPHRINE IVPB SCH ×3 (02:36→14:42)
[2016-10-23] MEDS: D5W IVPB SCH ×3 (02:36→14:42)
[2016-10-23] MEDS: VANCOMYCIN 25 MG/ML PO SCH ×2 (03:43→09:32)
[2016-10-23] MEDS: Sodium Bicarbonate 8.4% IV* 150 MEQ in D5W 1000 ML BAG* 1,000 ML IVPB SCH (04:10)
[2016-10-23] MEDS ORDERED: VASOPRESSIN 20 UNITS/ML 1 ML VIAL ONE (04:25)
[2016-10-23] MEDS ORDERED: Vasopressin* 100 UNITS in D5W 250 ML BAG* 245 ML IVPB SCH (04:45)
[2016-10-23 06:40] LABS: Hematocrit 29 % (35-47); Hemoglobin 9.6 g/dl (12.0-16.0); Mean Corpuscular HGB Conc 33 g/dl (31-36); Mean Corpuscular Hemoglobin 27 pg (27-31); Mean Corpuscular Volume 82 fL (80-97); Mean Platelet Volume 8 um3 (7.4-10.4); Red Blood Count 3.52 10^6/ul (4.0-5.4); Red Cell Distribution Width 15 % (10.5-15); White Blood Count 11.6 10^3/ul (3.5-10.8)
[2016-10-23] MEDS: Heparin VIAL(*) 5000 UNITS/ML VIAL (FIVE THOUSAND) SUBCUT SCH ×2 (06:44→13:18)
[2016-10-23 06:55] LABS: EGFR African American 5.8 (>60); EGFR Non-African American 4.5 (>60); Potassium 4.9 mmol/L (3.5-5.0)
[2016-10-23 07:27] LABS: Calcium 5.3 mg/dL (8.6-10.3)
[2016-10-23] MEDS ORDERED: NS 0.9% 1000 ML* 1,000 ML IV SCH ×2 (09:00→15:30)
[2016-10-23] MEDS: NS 0.9% 1000 ML* 3,000 ML IV ONE ×6 (09:17→14:28)
[2016-10-23] MEDS ORDERED: Acetaminophen TAB* 325 MG PO PRN (09:29)
[2016-10-23] MEDS ORDERED: Hydrocortisone INJ* 100 MG VIAL IV SCH (10:00)
[2016-10-23] MEDS ORDERED: Nystatin CREAM* 15 GM TUBE TOPICAL PRN (10:31)
[2016-10-23] MEDS ORDERED: Norepinephrine VIAL* 1 MG/ML 4 ML VIAL ONE (10:36)
--- NOTE | 2016-10-23 11:48 | PN ---
Progress Note - Progress Note Note: CRITICAL CARE MEDICINE Date: 10/23/16 Time: 850 SUBJECTIVE: Patient seen and examined. Daughters at bedside. PHYSICAL EXAM: Vital Signs: Reviewed. on levophed 20, vaso, with SBP >90 and diastolics 40- 50s. HR 80s. Neurologic: awake, underlying dementia. denies abd pain. does have leg pains, chronic. HEENT: pupils equal. Trachea midline. MM dry Cardiovascular: S1 S2 Respiratory: prolonged exhalation without deep inhalation. Abdomen: Soft, nt. No r/g/r. Extremities: Warm. No edema Access: Left IJ LABS: Reviewed. IMAGING: Reviewed. MEDICATIONS: Reviewed. ASSESSMENT: 85 F Septic shock - ?uti Severe intravascular volume depletion Acute anuric pre-renal renal failure leading to component of ATN Diarrhea likely associated with uremic clearance. Cdiff neg this am. Lactic acidosis - ?metformin associated; doubt ishemic bowel given lack of any pain Lack of resp compensation Relative adrenal insuff Hyponatremia Dementia PLAN: Neurologic: awake. cerebral perfusion seems adequate. Avoid sedation but can use tylenol for comfort. Cardiovascular: Maintaining but no much too much vasopressors without improved end points. Bolus 6L now and see if we can achieve and improved preload and delivery and avoid overconstiction. Respiratory: Placed on O2 as she is failing her curves for compensation and needs to ventilate better and avoid increased O2 consumption. Gastrointestinal: abd benign. po clears. ppi Renal/Metabolic: She was augmented with HCO3 gtt overnight but without any real urine output and need to avoid conversion to CO2 as she is alreayd void of appropriate compensation. Her function is quite concerning and if she is unable to increase GFR then we may be forced into urgent HD and or she remains at risk for MSOF and acutely from failures. Need fluid now and f/u. K ok. Infectious Disease: cdiff neg. Really not looking infective, but might have had infection start her failing ways this past week. Keep zosyn for now. Await Ua. angel willams and jasmine. Hematology: stable but should dilute further. Endocrine: low diastolics and uncompensating Hr leave a concern for adrenal insuff and given vasopressors, tx with steroids and fluids and see if we can come off pressors. Check random cortisol. Musculoskeletal: oob slowly today Psych/Social: daughters updated at bedside. Supportive and preventative care as ordered. SUP: ppi VTE prophylaxis: heparin Garcia catheter given critical illness, monitoring needs for accurate assessment of KEVIN and KDIGO criteria for critically ill patients and to avoid potential harms of urinary retention, skin breakdown/ulcers. Disposition: ICU, condition critical Code Status: Full, as DNI presently. will discuss Critical Care Time: 35min Vikas Rodriguez DO
[2016-10-23] MEDS ORDERED: Morphine INJ* 2 MG/ML 1 ML CARPUJECT IV PRN (13:06)
[2016-10-23 14:08] LABS: Urine Bacteria Absent (Absent); Urine Bilirubin Negative (Negative); Urine Glucose 1+(50 mg/dL) (Negative); Urine Nitrite Negative (Negative)
--- NOTE | 2016-10-23 15:36 | PN ---
Progress Note - Progress Note Note: CRITICAL CARE MEDICINE Date: 10/23/16 Time: 1530 Patient given 6L NS, placed on HFO2, and yet still cannot meet end points of perfusion. Failing. D/w Family. She is bcoming more uncomfortable sec to labor of breathing in combatant of acidosis and wob escalating without any meaningful urine output still requiring max dose vasopressors. Family was clear early in the day about DNR, DNI and we were hopefully for some signs of metabolics being met, but as the remain unmet and knowing her course is unlikely to be fruitful, and given her discomforts, we will change to comfort care and avoid her suffering. Start morphine gtt and see if she can be awake and more comfortable. Wean down and off HFO2 and wean down and off vasopressors and allow her to be comfortable. Family in complete agreement. Septic shock - uti Severe intravascular volume depletion Acute anuric pre-renal renal failure leading to component of ATN Diarrhea likely associated with uremic clearance. Cdiff neg this am. Lactic acidosis - likely metformin associated post reanl failure Acute hypoxic resp failure - with lack of resp compensation Relative adrenal insuff Hyponatremia Dementia Disposition: comfort care Code Status: DNR/DNI Critical Care Time: 15min Vikas Rodriguez DO
[2016-10-23] MEDS: Morphine PCA ADULT* 5 MG/ML 30 ML PCA SCH (16:38)
[2016-10-23] MEDS ORDERED: Cefepime(*) 1 GM in NS 0.9% 50 ML* 50 ML IVPB SCH (20:00)
[2016-10-23 20:25] VITALS: BP 67/26
[2016-10-23] MEDS: Atropine 1% (ORAL/SL)* 15 ML BTL SL PRN (22:31)
[2016-10-24] MEDS: Atropine 1% (ORAL/SL)* 15 ML BTL SL PRN (01:20)
[2016-10-24] MEDS: Timolol XE 0.5% (OPHTH)(NF) 1 DROP BTL BOTH EYES SCH ×2 (06:11→08:40)
--- NOTE | 2016-10-24 15:42 | PN ---
Subjective Date of Service: 10/24/16 Interval History: Patient seen this morning with family at bedside. They report she is comfortable , they have no concerns at present Family History: Unchanged from Admission Social History: Unchanged from Admission Past Medical History: Unchanged from Admission Objective Active Medications: Acetaminophen (Tylenol Tab*) 650 mg PO Q6H PRN PRN Reason: PAIN Atropine Sulfate (Atropine 1% (Oral/Sl)*) 3 drop SL Q30M PRN PRN Reason: DISCOMFORT Last Admin: 10/24/16 01:20 Dose: 3 drop Morphine Sulfate (Morphine Clinical Information Systems Director Adult* 5 Mg/Ml) 30 mls @ 0 mls/hr [employer]CHOOL PRINCIPAL .change Q24H WES; Per Protocol PRN Reason: Protocol Last Admin: 10/23/16 16:38 Dose: 1.2 mls/hr Morphine Sulfate (Morphine Inj (Syringe)*) 2 mg IV Q1H PRN PRN Reason: SOB/WHEEZING Last Admin: 10/23/16 13:18 Dose: 2 mg Nystatin (Nystatin Cream*) 1 applic TOPICAL TID PRN PRN Reason: RASH Vital Signs 10/23/16 10/23/16 10/23/16 15:45 16:00 16:15 Temperature 95.9 F 96.0 F 96.1 F Pulse Rate 76 74 75 Respiratory 18 21 21 Rate Blood Pressure 91/61 84/58 98/36 (mmHg) O2 Sat by Pulse 100 100 100 Oximetry 10/23/16 10/23/16 10/23/16 19:30 20:00 20:38 Temperature 96.0 F 96.0 F Pulse Rate 64 64 Respiratory 10 10 10 Rate Blood Pressure 67/26 (mmHg) O2 Sat by Pulse 98 97 98 Oximetry Oxygen Devices in Use Now: Nasal Cannula Appearance: Elderly, F, laying in bed in NAD Result Diagrams: 10/23/16 06:24 10/23/16 06:24 Microbiology and Other Data: Microbiology 10/23/16 13:40 Urine Culture - Final Urine 10/22/16 23:15 Aerobic Blood Culture - Preliminary Blood Venous No Growth Day 1 Anaerobic Blood Culture - Preliminary No Growth Day 1 10/22/16 22:48 Aerobic Blood Culture - Preliminary Blood Venous No Growth Day 1 Anaerobic Blood Culture - Preliminary No Growth Day 1 10/23/16 08:00 Stool Gross Appearance - Final Stool C. difficile DNA Amplification - Final 027 Presumptive NEGATIVE Toxigenic C.diff NEGATIVE Stool Lactoferrin - Final Stool Occult Blood (MT) - Final Cryptosporidium/Giardia - Final Neg Cryptosporidium/Giardia Assess/Plan/Problems-Billing Assessment: Septic shock 2/2 UTI, ATN in an 85 yo F - Patient Problems (1) Comfort measures only status Current Visit: Yes Comment: Appears comfortable. Continue morphine gtt with prn available as well as atropine prn. Prognosis likely hours to days.
[2016-10-24] MEDS: Morphine PCA ADULT* 5 MG/ML 30 ML PCA SCH (16:00)
--- NOTE | 2016-10-25 09:18 | PN ---
Hospitalist Progress Note CTSP for cessation of respirations. Patient laying in bed. No cardiac or pulmonary sounds on auscultation. Carotid pulses absent on palpation. Pupils fixed and dilated. Time of 0840. Family at bedside, decline autopsy. Would like patient to go to [facility].
--- NOTE | 2016-10-26 02:46 | DS ---
SUMMARY: DATE OF ADMISSION: 10/22/16 DATE OF : 10/25/16 PRIMARY CARE PHYSICIAN: Antolin Quiroz MD CAUSE OF : Septic shock secondary to UTI. HISTORY OF PRESENT ILLNESS AND HOSPITAL SUMMARY: Please see the full history and physical by Dr. Amarjit Oglesby for full details. Briefly, Ms. Narayanan is an 85-year- old female who was recently hospitalized for UTI and urinary retention , presented to the hospital with diarrhea and significant weakness. She was hypotensive here in the emergency room. She was started on broad spectrum antibiotics and vasopressors. She had lactic acidosis and significant renal failure that did not improve with aggressive therapies. Dr. Rodriguez spoke with the family and decision was made to transition the patient to comfort care. She was transferred to floor on 10/23/16. She was on a morphine drip and she on 10/25/16. Family was present at the time, declined an autopsy. TOTAL TIME SPENT ON THIS DISCHARGE: 30 minutes. This is the summary of the hospitalization. Please see the full medical record for further details. CC: Antolin Quiroz MD* [id number]/[facility] #: [id number] MTDD
--- NOTE | 2016-11-09 12:20 | ED ---
Harjit Coleman Claudia, scribed for Devonte Velásquez MD on 10/22/16 at 1628 . Complex/Multi-Sys Presentation - HPI Summary HPI Summary: 85 year old female presents to the ED via EMS from [facility]. Pt recently moved to [facility] less than 1 week ago after being d/c from [facility]. PMHx of Dementia is noted. EMS and family document. Per family and staff at [facility] pt has been refusing to eat/drink for the past few days. In addition, per family she is unhappy at [facility] but she is unable to live alone. PMHx of UTI is notes but family is unsure if she is still on any antibiotics. Per EMS pt was hypotensive in the EMS with systolic BP in the 80s. Pt does deny CP and abd pain upon arrival in ED. Level 5 caveat- Dementia - History Of Current Complaint Time Seen by Provider: 10/22/16 16:15 Hx Obtained From: Patient, Family/Coil Former, EMS Hx From Patient Unobtainable Due To: Dementia Onset/Duration: Gradual Onset Timing: Constant Associated Signs And Symptoms: Positive: Other - hypotensive - Allergies/Home Medications Allergies/Adverse Reactions: Allergies Allergy/AdvReac Type Severity Reaction Status Date / Time Sulfa Drugs AdvReac Intermediate N/V Verified 04/30/16 09:29 Home Medications: Home Medications Ondansetron TAB* [Zofran Tab*] 4 mg PO Q8HR PRN 10/22/16 [History Confirmed ] PMH/Surg Hx/FS Hx/Imm Hx Previously Healthy: Yes Endocrine/Hematology History: Reports: Hx Diabetes Cardiovascular History: Reports: Hx Hypercholesterolemia, Hx Hypertension Denies: Hx Coronary Artery Disease Respiratory History: Denies: Hx Chronic Obstructive Pulmonary Disease (COPD) History: Denies: Hx Dialysis Musculoskeletal History: Reports: Hx Arthritis Denies: Hx Back Problems Sensory History: Reports: Hx Contacts or Glasses Opthamlomology History: Reports: Hx Contacts or Glasses Neurological History: Reports: Hx Dementia Denies: Hx Seizures - Cancer History Hx Chemotherapy: No Hx Radiation Therapy: No - Family History Family History: No FHx of Breast CA - Social History Occupation: Retired Lives: Assisted Living - [facility] Alcohol Use: None Hx Substance Use: No Substance Use Type: Reports: None Hx Tobacco Use: Yes Smoking Status (MU): Former Smoker Review of Systems - ROS Summary Review of Systems Summary: Level 5 caveat- Dementia Negative: Chest Pain Negative: Abdominal Pain All Other Systems Reviewed And Are Negative: No Physical Exam - Summary Physical Exam Summary: Level 5 caveat- Dementia Triage Information Reviewed: Yes Vital Signs On Initial Exam: Initial Vitals Temp Pulse Resp BP Pulse Ox 96 F 73 20 73/33 100 10/22/16 16:42 10/22/16 16:42 10/22/16 16:42 10/22/16 16:42 10/22/16 16:42 Vital Signs Reviewed: Yes Appearance: Positive: Well-Appearing, No Pain Distress Skin: Positive: Warm, Skin Color Reflects Adequate Perfusion, Dry Head/Face: Positive: Normal Head/Face Inspection Eyes: Positive: EOMI, RILEY ENT: Positive: Other - oral muscosa dry. Negative: Hearing grossly normal - hard of hearing Neck: Positive: Supple, Nontender Respiratory/Lung Sounds: Positive: Clear to Auscultation, Breath Sounds Present Cardiovascular: Positive: RRR Abdomen Description: Positive: Nontender, Soft Bowel Sounds: Positive: Present Psychiatric: Positive: Affect/Mood Appropriate Diagnostics - Vital Signs Vital Signs Temp Pulse Resp BP Pulse Ox 10/22/16 17:53 96 F 101 20 61/29 100 10/22/16 17:16 88 20 64/25 99 10/22/16 16:45 56 20 61/32 100 10/22/16 16:42 96 F 73 20 73/33 100 - Laboratory Lab Results: Lab Results 10/22/16 10/22/16 10/22/16 Range/Units 16:14 16:14 16:14 WBC 12.1 H (3.5-10.8) 10^3/ul RBC 3.84 L (4.0-5.4) 10^6/ul Hgb 10.6 L (12.0-16.0) g/dl Hct 32 L (35-47) % MCV 84 (80-97) fL MCH 28 (27-31) pg MCHC 33 (31-36) g/dl RDW 15 (10.5-15) % Plt Count 342 (150-450) 10^3/ul MPV 9 (7.4-10.4) um3 Neut % (Auto) 88.2 H (38-83) % Lymph % (Auto) 9.1 L (25-47) % Rusk % (Auto) 2.5 (1-9) % Eos % (Auto) 0 (0-6) % Baso % (Auto) 0.2 (0-2) % Absolute Neuts (auto) 10.7 H (1.5-7.7) 10^3/ul Absolute Lymphs (auto) 1.1 (1.0-4.8) 10^3/ul Absolute Monos (auto) 0.3 (0-0.8) 10^3/ul Absolute Eos (auto) 0 (0-0.6) 10^3/ul Absolute Basos (auto) 0 (0-0.2) 10^3/ul Absolute Nucleated RBC 0 10^3/ul Nucleated RBC % 0 INR (Anticoag Therapy) 1.00 (0.89-1.11) APTT 29.0 (26.0-36.3) seconds Sodium 121 L (133-145) mmol/L Potassium 7.6 H* (3.5-5.0) mmol/L Chloride 87 L (101-111) mmol/L Carbon Dioxide 8 L* (22-32) mmol/L Anion Gap 26 H (2-11) mmol/L BUN 121 H (6-24) mg/dL Creatinine 10.19 H (0.51-0.95) mg/dL Est GFR ( Amer) 4.6 (>60) Est GFR (Non-Af Amer) 3.6 (>60) BUN/Creatinine Ratio 11.9 (8-20) Glucose 101 H (70-100) mg/dL Lactic Acid (0.5-2.0) mmol/L Calcium 7.1 L (8.6-10.3) mg/dL Magnesium 2.3 (1.9-2.7) mg/dL Total Bilirubin 0.30 (0.2-1.0) mg/dL AST 32 (13-39) U/L ALT 21 (7-52) U/L Alkaline Phosphatase 38 (34-104) U/L Total Creatine Kinase 198 (10-223) U/L CK-MB (CK-2) 10.6 H (0.6-6.3) ng/mL Troponin I 0.03 (<0.04) ng/mL C-Reactive Protein 9.91 H (< 5.00) mg/L B-Natriuretic Peptide ( - 100) pg/mL Total Protein 6.4 (6.4-8.9) g/dL Albumin 3.1 L (3.2-5.2) g/dL Globulin 3.3 (2-4) g/dL Albumin/Globulin Ratio 0.9 L (1-3) TSH 0.67 (0.34-5.60) mcIU/mL Cortisol 54.40 g/dL 10/22/16 10/22/16 Range/Units 16:14 16:14 WBC (3.5-10.8) 10^3/ul RBC (4.0-5.4) 10^6/ul Hgb (12.0-16.0) g/dl Hct (35-47) % MCV (80-97) fL MCH (27-31) pg MCHC (31-36) g/dl RDW (10.5-15) % Plt Count (150-450) 10^3/ul MPV (7.4-10.4) um3 Neut % (Auto) (38-83) % Lymph % (Auto) (25-47) % Rusk % (Auto) (1-9) % Eos % (Auto) (0-6) % Baso % (Auto) (0-2) % Absolute Neuts (auto) (1.5-7.7) 10^3/ul Absolute Lymphs (auto) (1.0-4.8) 10^3/ul Absolute Monos (auto) (0-0.8) 10^3/ul Absolute Eos (auto) (0-0.6) 10^3/ul Absolute Basos (auto) (0-0.2) 10^3/ul Absolute Nucleated RBC 10^3/ul Nucleated RBC % INR (Anticoag Therapy) (0.89-1.11) APTT (26.0-36.3) seconds Sodium (133-145) mmol/L Potassium (3.5-5.0) mmol/L Chloride (101-111) mmol/L Carbon Dioxide (22-32) mmol/L Anion Gap (2-11) mmol/L BUN (6-24) mg/dL Creatinine (0.51-0.95) mg/dL Est GFR ( Amer) (>60) Est GFR (Non-Af Amer) (>60) BUN/Creatinine Ratio (8-20) Glucose (70-100) mg/dL Lactic Acid 6.4 H* (0.5-2.0) mmol/L Calcium (8.6-10.3) mg/dL Magnesium (1.9-2.7) mg/dL Total Bilirubin (0.2-1.0) mg/dL AST (13-39) U/L ALT (7-52) U/L Alkaline Phosphatase (34-104) U/L Total Creatine Kinase (10-223) U/L CK-MB (CK-2) (0.6-6.3) ng/mL Troponin I (<0.04) ng/mL C-Reactive Protein (< 5.00) mg/L B-Natriuretic Peptide 367 H ( - 100) pg/mL Total Protein (6.4-8.9) g/dL Albumin (3.2-5.2) g/dL Globulin (2-4) g/dL Albumin/Globulin Ratio (1-3) TSH (0.34-5.60) mcIU/mL Cortisol g/dL Result Diagrams: 10/23/16 06:24 10/23/16 06:24 Lab Statement: Any lab studies that have been ordered have been reviewed, and results considered in the medical decision making process. - Radiology CXR Xray Interpretation: Positive (See Comments) - WHILE LEFTWARD ROTATION LIMITS ASSESSMENT THERE IS SUGGESTION OF ALVEOLAR CONSOLIDATION AT THE LEFT MID TO LOWER LUNGZONE CONCERNING FOR PNEUMONIA . UNDERLYING STIGMATA OF COPD. CORRELATE WITH CLINICAL ASSESSMENT Radiology Interpretation Completed By: Radiologist - EKG 1749 Cardiac Rate: Bradycardia EKG Rhythm: Sinus Bradycardia - 50 beats/min EKG Interpretation: nonspecific intraventricular conduction delay Re-Evaluation - Re-Evaluation 1 Re-Evaluation Time: 17:54 Comment: lab results are discussed with family of patient. 2 Re-Evaluation Time: 18:31 Comment: Updating pt and family on admission to ICU. Complex Multi-Symp Course/Dx - Diagnoses Provider Diagnoses: Hypotension - Physician Notifications Discussed Care Of Patient With: Discussed care of patient with Dr. Oglesby whom will admit to ICU. He also recommends 2 AMP of bicarb Discharge - Discharge Plan Condition: Guarded Disposition: ADMITTED TO [facility] The documentation as recorded by the Harjit wiggins Claudia accurately reflects the service I personally performed and the decisions made by me, Devonte Velásquez MD.
== END 2016-10-25 08:40 | disposition expired | DRG 871 ==
LOC: ED 15:59 → ICU 18:02 → MED 10-23 22:10
PROVIDERS: ADMIT Internal Medicine; ATTEND Hospitalist
PROC: 02HV33Z Insertion of Infusion Device into Superior Vena Cava, Percutaneous Approach (ICD-10-PCS; principal; 2016-10-22)
PROC: B548ZZA Ultrasonography of Superior Vena Cava, Guidance (ICD-10-PCS; 2016-10-22)
PROC: 3E043XZ Introduction of Vasopressor into Central Vein, Percutaneous Approach (ICD-10-PCS; 2016-10-22)
DX: A41.9 Sepsis, unspecified organism (principal); R65.21 Severe sepsis with septic shock; N17.0 Acute kidney failure with tubular necrosis; J96.01 Acute respiratory failure with hypoxia; I95.9 Hypotension, unspecified; E87.2 Acidosis; E27.40 Unspecified adrenocortical insufficiency; F03.90 Unspecified dementia, unspecified severity, without behavioral disturbance, psychotic disturbance, mood disturbance, and anxiety; N39.0 Urinary tract infection, site not specified; E87.1 Hypo-osmolality and hyponatremia; E11.9 Type 2 diabetes mellitus without complications; I10 Essential (primary) hypertension; H40.9 Unspecified glaucoma; R19.7 Diarrhea, unspecified; Z51.5 Encounter for palliative care; E86.9 Volume depletion, unspecified; Z66 Do not resuscitate; E86.1 Hypovolemia; E87.5 Hyperkalemia; Z88.2 Allergy status to sulfonamides; Z82.0 Family history of epilepsy and other diseases of the nervous system
CPT/HCPCS: 36415; 71010; 80048; 80053; 81003; 81015; 82272; 82533; 82550; 82553; 83605; 83630; 83735; 83880; 84443; 84484; 85025; 85610; 85730; 86140; 87040; 87045; 87046; 87086; 87328; 87329; 87493; 87899; 93005; 99285; A9270-GY; J0692; J1644; J1720; J2250; J2270; J2543; J3370; J3490; J7060